=== PATIENT | female | born 1940 | race Caucasian/White ===

== ENCOUNTER → 2016-09-01 | Outpatient (CLI) | payer MEDICARE ==
[~2016-09-01] MED LIST: ALBUTEROL0.09 MG/A2 INH; AUGMENTIN 875 M1 TA1 PO; BENADRYL50 MG PO; CIPRO500 MG PO; CIPROFLOXACIN500 MG PO; DUONEB 3 MG/3 ML3 M1 INH; HYDROCODONE BIT1 T11 PO; LOVASTATIN10 MG PO; MIRAPEX PO; NEBULIZER; NORCO 325 MG-51 TAB PO; OMEPRAZOLE20 MG PO; OMEPRAZOLE40 MG PO; OXYBUTYNIN5 MG PO; PREDNICOT20 MG PO; SIMVASTATIN10 MG PO; SPIRIVA -- 3018 MCG PO; TRAMADOL HCL50 MG PO; ULTRAM50 MG PO; VIBRAMYCIN100 MG PO; VICODIN 5/500 505 MG PO
== END | disposition home or self-care (01) ==
LOC: MAMMO 12:54
DX: Z12.31 Encounter for screening mammogram for malignant neoplasm of breast (principal)

== ENCOUNTER → 2016-10-19 | Outpatient (CLI) | payer MEDICARE | END | disposition home or self-care (01) | LOC: RAD 16:16 | DX: J44.9 Chronic obstructive pulmonary disease, unspecified (principal); R07.89 Other chest pain ==

== ENCOUNTER 2017-02-26 18:32 | Inpatient (IN) | payer MEDICARE ==
[~2017-02-26] VITALS: Ht 144.7 cm; Wt 71.8 kg
--- NOTE | ~2017-02-26 | PR ---
[place], [place] PROGRESS NOTE NAME: CORTES PONCE UNIT #: [id number] ROOM: 509 DOCTOR: DEVAN CAO MD BIRTHDATE: [birth year] DOS: 03/01/2017 SUBJECTIVE: The patient continues to have grunting respiration, seems to be choking on cereal that she is eating. OBJECTIVE: VITAL SIGNS: Blood pressure 115/70, pulse of 71, respirations 20, temperature 97.9. LUNGS: Diminished breath sounds, a few scattered rales heard. HEART: Regular. ABDOMEN: Obese, soft. EXTREMITIES: Without any edema. ASSESSMENT AND PLAN: 1. Acute diastolic congestive heart failure, improving, most likely from underlying aortic stenosis. 2. Possibility of aspiration. Speech Therapy consultation has been ordered. 3. Adult failure to thrive. PT/OT and social service consult has been obtained for possible skilled placement. DEVAN CAO MD CM:PNTRANS [phone] DEVAN CAO MD 03/02/1799 interface
--- NOTE | ~2017-02-26 | PR ---
[place], [place] PROGRESS NOTE NAME: CORTES PONCE UNIT #: [id number] ROOM: 509 DOCTOR: DEVAN CAO MD BIRTHDATE: [birth year] DOS: SUBJECTIVE: The patient is not having any complaints today. She continues to have grunting respirations and a cough after she ate. OBJECTIVE: VITAL SIGNS: Blood pressure 126/45, pulse of 62, respirations 18, temperature 98.3. LUNGS: Diminished breath sounds, clear. HEART: Regular. ABDOMEN: Obese, soft, nontender. EXTREMITIES: Without any edema. LABORATORY DATA: No echo report available yet. ASSESSMENT AND PLAN: 1. Possible aspiration, especially with her coughing spells after she eats, a modified barium swallow with speech will be ordered. 2. Aortic stenosis, moderate waiting for the echocardiogram to decide on further treatment plan. Fall could be related to dizziness from aortic stenosis. 3. Adult failure to thrive with repeated falls. The patient's family does not want her to go to a rehab facility. Plan is to discharge home with visiting nurses. DEVAN CAO MD CM:PNTRANS [phone] DEVAN CAO MD 03/09/17 1134 interface
--- NOTE | ~2017-02-26 | WRIGHTHP ---
[place], [place] PATIENT HISTORY AND PHYSICAL EXAM NAME: CORTES PONCE UNIT #: [id number] ROOM: 509 DOCTOR: DEVAN CAO MD BIRTHDATE: [birth year] DOS: 02/26/2017 HISTORY OF PRESENT ILLNESS: The patient is 76 years old. The patient has been admitted under services in the past. The patient was brought into the Emergency Room by family members after a fall in a bath tub. She hit her right forehead. The patient this morning is not able to tell me exactly what happened to her. She is not able to tell me her doctor's name either. She denies having any chest pains or palpitations, but she states that she has been short of breath for the last 2 weeks. She does not have any cough or sputum production, but audible wheezing can be heard. PAST MEDICAL HISTORY: Significant for: 1. COPD. 2. Moderate aortic stenosis. Last echo that we have in the chart is from 2014. 3. History of diastolic CHF. 4. Adult failure to thrive. MEDICATIONS: That the patient is on are; ProAir HFA 2 puffs q.i.d., DuoNeb twice a day, omeprazole 40 daily, oxybutynin 5 daily, simvastatin 10 daily, Spiriva 1 puff at bedtime. SOCIAL HISTORY: Nonsmoker. PHYSICAL EXAMINATION: GENERAL: She is awake and alert, but orientation is questionable. VITAL SIGNS: Pressure is 118/39, pulse of 68, respirations 18, temperature 97.7. LUNGS: Diminished breath sounds, scattered wheezes and rhonchi. HEART: Regular. ABDOMEN: Obese, soft. EXTREMITIES: Without any edema. ASSESSMENT AND PLAN: 1. The patient has underlying chronic obstructive pulmonary disease with mild exacerbation, breathing treatments will be started. 2. Recent fall at home with some bruising of the right forehead. CT scan of the head was negative other than chronic small vessel disease. The patient will have PT, OT evaluation and possible social service consult for placement. 3. Moderate aortic stenosis in the last echocardiogram in 2014. The possibilities that the stenosis may be much worse and that she has dizziness and her fall could be from the underlying stenosis, so echocardiogram has been ordered, chest x-ray will be ordered and also one dose of Lasix to be given to see whether she will diurese and help with shortness of breath. [place], [place] PATIENT HISTORY AND PHYSICAL EXAM NAME: CORTES PONCE UNIT #: [id number] ROOM: [facility] DOCTOR: DEVAN CAO MD BIRTHDATE: [birth year] DEVAN CAO MD CM:HISPHYS:PATIENT HISTORY AND PHYSICAL EXAMINATION [id number] DEVAN CAO MD 03/09/17 1132 interface
--- NOTE | ~2017-02-26 | PR ---
[place], [place] PROGRESS NOTE NAME: CORTES PONCE UNIT #: [id number] ROOM: 509 DOCTOR: DEVAN CAO MD BIRTHDATE: [birth year] DOS: 02/28/2017 SUBJECTIVE: The patient states that she feels better. Her daughter who was in the room also states that she looks better. The patient has a grunting respiration. OBJECTIVE: VITAL SIGNS: Graphic trend shows blood pressure 143/60, pulse of 80, respirations 20, temperature 98.1. LUNGS: Diminished breath sounds. Scattered rales heard bilaterally. HEART: Regular. ABDOMEN: I could not hear murmur because of the grunting respirations. EXTREMITIES: Without knee edema. LABORATORY DATA: For the last 24 hours negative balance by 42 mL. ASSESSMENT AND PLAN: 1. Acute diastolic congestive heart failure, getting diuresed. 2. Aortic stenosis, [id number] possibility is reason for her congestive heart failure. Echocardiogram pending. Cardiology consultation obtained. 3. Frail with adult failure to thrive. PT/OT will be consulted. The patient as per the family members does not walk on her own. She is mostly bed bound or sits in a recliner. Social Service will also be consulted for discharge planning. DEVAN CAO MD CM:PNTRANS [phone] DEVAN CAO MD 03/16/17 0810 interface
--- NOTE | ~2017-02-26 | CON ---
[place], [place] REPORT OF CONSULTATION NAME: CORTES PONCE UNIT #: [id number] ROOM: 509 DOCTOR: SUAD KENNEDYAGNESMADI BIRTHDATE: [birth year] DOS: 02/28/2017 REQUESTING PHYSICIAN: Dr. Raygoza. REASON FOR CONSULTATION: Fall. ASSESSMENT: 1. Current presentation with status post fall. 2. No preceding cardiac symptoms or loss of consciousness. 3. Hypertension. 4. Hyperlipidemia. 5. Unknown level of lipid. 6. Enlarged cardiac silhouette on chest x-ray. 7. Abnormal baseline EKG. 8. Systolic ejection murmur on physical exam. 9. History of heavy previous tobacco abuse. PLAN: 1. Cycle cardiac enzymes. 2. Check thyroid function test. 3. Echocardiogram in a.m. 4. Lopressor 25 mg 1 tablet p.o. b.i.d. 5. We will follow only conservative management (at the request from the patient, her son and daughter). 6. No further cardiac testing at this time. HISTORY OF PRESENT ILLNESS: The patient is a pleasant 76-year-old female unknown to our practice, was referred by Dr. Raygoza further evaluation of a fall. Apparently, there was a question with evidence of systolic ejection murmur. Physical exam consistent with aortic stenosis, for that Cardiology consultation was called in. From the cardiology point of view, the patient denies any specific cardiac complaint. No chest pain, chest pressure, heaviness or tightness. No jaw pain, no left arm pain, no back pain. History was obtained from patient, her son and her daughter who were present at the time of this examination. Never had any symptomatic palpitation or any associated dizziness, lightheadedness or near syncope. No reported PND, orthopnea or pedal edema. The patient has lived at home with very limited functional capacity and known unsteady gait for the past 2 years. The patient uses a walker and occasionally a cane. No fever, no chills, no night sweats. The patient though has been reporting some cough. Stable appetite with no significant recent weight change. PAST MEDICAL HISTORY: As detailed in my assessment. SOCIAL HISTORY: The patient denies any current tobacco, alcohol or illicit drug abuse. Of note, the patient is a heavy previous smoker, according to her daughter. CURRENT MEDICATIONS: Zocor, Lasix, Tylenol, Ditropan and DuoNeb. [place], [place] REPORT OF CONSULTATION NAME: CORTES PONCE UNIT #: [id number] ROOM: [facility] DOCTOR: CRIS BORJAS MD BIRTHDATE: [birth year] ALLERGIES: The patient has no known drug allergies. REVIEW OF SYSTEMS: Was done with the help of the patient's son and daughter. There is no current headache, diplopia or blurry vision. There is pain at the right side of the face where the patient had hit her head. There is no fever, chills or night sweats. No abdominal pain, no bright red blood per rectum or tarry stools. The patient admits to joint pain and muscular pain. Occasional depression, but no anxiety. No polyuria, no polydipsia, no skin rash. Review of other systems has been negative. PHYSICAL EXAMINATION: GENERAL: The patient is alert, oriented x 3. She is in bed, moaning most of the time. No specific cardiac complaint. VITAL SIGNS: Blood pressure 143/60, heart rate 88, respiratory rate of 16. Extraocular muscles are intact, temperature 98.1. HEENT: Extraocular muscles intact. Pupils equal, round and reactive to light. Conjunctivae: Mild pallor. Throat: No petechiae. NECK: Good upstroke. A faint bruit could be heard over the right. No lymphadenopathy or thyromegaly. CARDIOVASCULAR: S1, S2 with a systolic ejection murmur that appears to be early to mid peaking, but preserved, A2. No rub, no sternal heave. Holosystolic murmur at the left lower sternal border. CHEST AND BACK: Not examined. LUNGS: Decreased air movement, but no alexa wheezing or rales. ABDOMEN: Obese, soft, nontender. Present bowel sounds. No masses, no bruits. EXTREMITIES: Mild edema with faint distal pulses. NEUROLOGIC: Grossly nonfocal. SKIN: No significant rash. LABORATORY DATA: White count is 10.4, hemoglobin 13.4, platelets 313,000 and there is no left shift. Potassium 4.3, BUN 23, creatinine 0.8, GFR more than 60% and glucose 120, normal liver function test. CRIS BORJAS MD CM:CONSTR:REPORT OF CONSULTATION 1135 03/26/17 1418 interface
--- NOTE | ~2017-02-26 | PR ---
[place], [place] PROGRESS NOTE NAME: CORTES PONEC UNIT #: [id number] ROOM: 509 DOCTOR: DEVAN CAO MD BIRTHDATE: [birth year] DOS: SUBJECTIVE: The patient is doing fine without any complaints. OBJECTIVE: VITAL SIGNS: Graphic trend shows pressure 122/51, pulse of 74, respirations 18, temperature 98.6. LUNGS: Diminished breath sounds. HEART: Regular. A few scattered wheezes still present. ABDOMEN: Obese, soft. EXTREMITIES: Without any edema. LABORATORY DATA: Chest x-ray was negative. Modified barium swallow showed no evidence of aspiration. Echocardiogram showed moderate aortic stenosis. ASSESSMENT AND PLAN: 1. Fall with failure to thrive. The patient's family wants her to go home and have PT, OT at home. They did not want to be placed in a rehab facility. 2. Small contusion of the right forehead. CT of the head was negative. 3. Moderate aortic stenosis could be responsive for her fall. 4. Benign hypertension, controlled with history of diastolic congestive heart failure. 5. Chronic obstructive pulmonary disease with mild exacerbation. Continue breathing treatments and steroids at home. DEVAN CAO MD CM:PNTRANS [phone] DEVAN CAO MD 03/03/179 interface
--- NOTE | ~2017-02-26 | PROC NOTE ---
[place], [place] PROCEDURE NOTE NAME: CORTES PONCE UNIT #: [id number] ROOM: 509 DOCTOR: CAROLANN MARTIN BIRTHDATE: [birth year] DOS: 03/02/2017 MODIFIED BARIUM SWALLOW LOCATION: [facility], room 509, bed 1. DOCTOR: Dr. Raygoza RADIOLOGIST: Dr. Salcido BACKGROUND INFORMATION: The patient is a 76-year-old female who was seen for modified barium swallow. This test was ordered to rule out aspiration. The patient was observed recently choking on cereal. The patient was admitted with a fall and closed head injury. Further medical history includes acute diastolic heart failure, failure to thrive, high cholesterol, Parkinson's disease, COPD, HTN and GERD. The patient currently receives a regular diet and thin liquids. For today's assessment, the patient was alert and able to follow commands; however, significant generalized weakness was displayed. The patient presented in a consistent open mouth position with tongue protruding. The patient was receiving oxygen via nasal cannula. Congested respirations were noted. Weak cough was displayed prior to oral presentations. Oral peripheral examination revealed presence of upper denture only. The patient reported that her denture is loose fitting. Labial skills were moderate to severely reduced in strength and range of motion. Buccal skills were mildly reduced in strength. Lingual skills were moderately reduced in strength and range of motion. The patient was able to volitionally swallow. Volitional cough was poor. METHODS AND MATERIALS USED FOR THE EXAM: The patient was positioned in the lateral plane and the exam was viewed under fluoroscopy. The patient was presented with a variety of consistencies to assess swallowing skills including applesauce mixed with barium presented in one to half and three quarters teaspoon amounts, barium-coated banana and cookie presented in bite size pieces and thin liquid barium taken by cup. The patient held the cup and swallowed in her regular sip size amount. ORAL PHASE: The patient achieved adequate labial seal around cup and spoon with no anterior loss. Bolus formation and transit were adequate. Mastication was functional due to her dentition. Tongue to palate contact was within normal limits. Tongue retraction was within normal limits. Velar functioning was within normal limits with no nasal regurgitation. PHARYNGEAL PHASE: The pharyngeal swallow occurred within a timely manner during the swallow. Hyolaryngeal elevation was adequate. Epiglottic function was adequate. No penetration or aspiration occurred with any consistency. There was no residue in the pharyngeal recesses. Incidentally, patient did begin coughing following oral presentations and upon further exam no penetration or aspiration had occurred. ESOPHAGEAL PHASE: This phase of the swallow was not formally assessed during this examination. [place], [place] PROCEDURE NOTE NAME: CORTES PONCE UNIT #: [id number] ROOM: [facility] DOCTOR: CAROLANN MARTIN BIRTHDATE: [birth year] IMPRESSIONS AND RECOMMENDATIONS: Based upon assessment results, this patient displayed safe tolerance for pureed, soft solid and thin liquid consistencies. Following the study, the patient did begin coughing, but upon further exam no penetration or aspiration had occurred. Recommend the patient remain on present diet with use of universal safe swallow precautions. Short term followup is recommended to ensure safety throughout the meal as her status places her at risk for aspiration. The patient and her nurse were educated on results and recommendations and they verbalized understanding. Thank you very much for this referral. Should you have any questions regarding this patient, please contact the speech pathologist at [phone]. CAROLANN MARTIN CM:PROCNOTE:PROCEDURE NOTE [phone] CAROLANN MARTIN
--- NOTE | ~2017-02-26 | DS ---
[place], [place] DISCHARGE SUMMARY NAME: CORTES PONCE UNIT #: [id number] ROOM: 509 DOCTOR: DEVAN CAO MD BIRTHDATE: [birth year] DOS: 03/03/2017 This is a 76-year-old patient known to us from previous admissions. DIAGNOSES: 1. Frailty with falls. 2. Scalp contusion. CT does not show any evidence of intracranial or subdural hematomas. 3. Small vessel disease of the brain. 4. Chronic obstructive pulmonary disease with mild exacerbation. 5. Diastolic congestive heart failure by history. 6. Moderate aortic stenosis. DISCHARGE MEDICATIONS: DuoNeb q.i.d., Ceftin 250 twice a day, prednisone tapering dose, Lasix 40 mg daily, oxybutynin 5 daily, omeprazole 40 daily, Spiriva 1 puff at bedtime, simvastatin 10 daily, ProAir HFA p.r.n. HOSPITAL COURSE: The patient is 76 years old. The patient comes in after a fall at home: Please refer to H and P for details. The patient had a scalp contusion. CT of the head and CT of the spine was negative. Chest x-ray showed no pathology. The patient appeared to have exacerbation of COPD after admission, was started on breathing treatments. There was also the suspicion for aspiration, so qualified barium swallow with Speech was done, which showed no evidence of aspiration. Cardiology consultation was obtained. The patient's echocardiogram showed moderate aortic stenosis, so no new medications were ordered. PT/OT was consulted. The patient's family feel that they could take her home with PT, OT, so arrangements will be made for visiting nurses and home health PT. Follow up with her PCP. DEVAN CAO MD CM:DISCHARG [phone] DEVAN CAO MD 03/03/17 1730 interface
[2017-02-26 19:05] VITALS: BP 139/76
[2017-02-26 19:29] LABS: BASO # 0.1 10*3/uL (0.0-0.1); BASO % 0.9 % (0.0-1.0); EOS # 0.2 10*3/uL (0.0-0.4); EOS % 1.8 % (1.0-4.0); HEMOGLOBIN 13.4 g/dl (12.0-16.0); LYMPH # 2.5 10*3/uL (1.3-4.4); LYMPH % 24.5 % (27.0-41.0); MEAN CORPUSCULAR HGB 28.4 pg (27.0-31.0); MEAN CORPUSCULAR HGB CONC 31.9 g/dl (33.0-37.0); MEAN PLATELET VOLUME 9.2 fl (9.6-12.3); MONO % 9.9 % (3.0-9.0); NEUT # 6.5 10*3/uL (2.3-7.9); NEUT % 62.5 % (47.0-73.0); PLATELET COUNT AUTOMATED 313 10*3/uL (130-400); RED BLOOD COUNT 4.72 10*6/uL (4.10-5.10); RED CELL DISTRI WIDTH 13.7 % (0-14.5); WHITE BLOOD COUNT 10.4 10*3/uL (4.8-10.8)
[2017-02-26 19:38] VITALS: BP 132/64
[2017-02-26 19:43] LABS: ALBUMIN 3.3 gm/dl (3.1-4.5); ALKALINE PHOSPHATASE 90 U/L (45-117); BUN 23 mg/dl (7-24); CHLORIDE 106 mmol/L (98-107); CREATININE 0.81 mg/dL (0.55-1.02); POTASSIUM 4.3 mmol/L (3.5-5.1); SGOT/AST 10 IU/L (3-35); SGPT/ALT 17 U/L (12-78); SODIUM 139 mmol/L (136-145); TOTAL PROTEIN 7.5 gm/dL (6.4-8.2)
--- NOTE | 2017-02-26 20:06 | NUR ---
PT HAD EPISODE OF EMESIS PER BARREL CLEANER WHEN ENTERING ROOM FOR ASSESSMENT. PT SPEECH IS SLURRED AND PT HAS FLAT AFFECT BUT DAUGHTER STATES THIS IS PT'S NORMAL STATE
[2017-02-26 21:18] VITALS: BP 132/50
--- NOTE | 2017-02-26 23:05 | NUR ---
REPORT GIVEN TO JEN MARX
[2017-02-26 23:30] VITALS: BP 118/39
--- NOTE | 2017-02-26 23:30 | NUR ---
A 76, admitted to , under the services of DEVAN Gomez MD with a diagnosis of FALL WITH CLOSED HEAD INJURY AND GENERALIZED WEAKNESS. Chief complaint is FALL GENERALIZED WEAKNESS. Patient arrived via bed from ER. Monitor applied. Initial assessment completed. Vital signs taken and recorded. DEVAN GOMEZ MD notified of admission to the unit. Orders received. See assessment for past medical history, medications and allergies. Patient and/or family oriented to unit. [facility] visitation policy reviewed. Clothing/patient valuable form completed. JEN LASSITER
[2017-02-26] MEDS ORDERED: PROAIR HFA8.5 GM INH (23:44)
[2017-02-27] VITALS: BP 149/64
[2017-02-27 08:00] VITALS: BP 142/60
[2017-02-27 12:00] VITALS: BP 128/68
[2017-02-27 16:00] VITALS: BP 152/55
--- NOTE | 2017-02-27 17:57 | NUR ---
PATIENT MEDICATED WITH PO TYLENOL PER ORDER FOR C/O HEADACHE AT THIS TIME. WILLL MONITOR.
[2017-02-27 20:00] VITALS: BP 136/50
[2017-02-28] VITALS: BP 143/60
--- NOTE | 2017-02-28 03:22 | NUR ---
PATIENT RESTING IN BED WITH EYES CLOSED. NO SIGNS OR SYMPTOMS OF DISTRESS NOTED. AROUSES TO VERBAL STIMULI. WILL CONTINUE TO MONITOR. CALL LIGHT IN REACH.
--- NOTE | 2017-02-28 08:46 | NUR ---
PT RECEIVED 650MG TYLENOL FOR SHARP RIB PAIN UPON RESPIRATION RATED AT 10/10.
--- NOTE | 2017-02-28 09:30 | NUR ---
PT STATES PAIN HAS REDUCED IN SHARPNESS AND STATES PAIN LEVEL AT A 6/10 DURING RESPIRATION.
[2017-02-28 11:55] LABS: TROPONIN I < 0.015 ng/ml (<0.045)
[2017-02-28 12:00] VITALS: BP 132/64
[2017-02-28 16:00] VITALS: BP 142/55
--- NOTE | 2017-02-28 19:30 | NUR ---
ASSUMED CARE OF PT AT THIS TIME, RESPS EASY AND NONLABORED WTIH NO S/S OF DISTRESS CALL LIGHT WITH IN REACH
[2017-02-28 20:00] VITALS: BP 140/58
[2017-03-01] VITALS: BP 149/64
--- NOTE | 2017-03-01 03:13 | NUR ---
RESTING IN BED WITH EYES CLOSED RESPS EASY AND NONLABORED WITH NO S/S OF DISTRESS CALL LIGHT WITH IN REACH
[2017-03-01 08:00] VITALS: BP 132/54
--- NOTE | 2017-03-01 08:30 | NUR ---
ALARM MECHANISM ADJUSTER VS. AID AT BEDSIDE. PT NOT ABLE TO ANSWER QUESTIONS. DC IRONER OR PRESSER WILL CHECK WITH FAMILY FOR POSS SNF PLACEMENT.
--- NOTE | 2017-03-01 11:28 | NUR ---
Spoke with giovani parish, who is also the patients director day care center. we discussed order for snf placement. Daughter says no, she doesn't want her to go to skilled, she takes patient to out patient therapy at the [facility] and would like that to continue. Will need script for out patient therapy prior to discharge.
--- NOTE | 2017-03-01 11:33 | NUR ---
Daughter called back and stated patient also goes to [facility] Wednesday through Wednesday until 2PM and does fine. Again, refusing snf.
[2017-03-01 12:00] VITALS: BP 134/62
--- NOTE | 2017-03-01 13:46 | NUR ---
PHYSICAL THERAPY PAtient having testing done at [facility] at this time. Thank you for this referral. Kymberly Boyd,PT
--- NOTE | 2017-03-01 14:46 | NUR ---
PHYSICAL THERAPY PAtient evaluated on 5, full evaluation to follow. Continue with PT as per plan of care with fall, mod (A) x 2 and alarm precautions. Recommend SNF: [facility], patient and family refuses. Home with 07/12 family assist and complete home health services. PAtient is moderate complexity via chart review, tests and evaluation: 19020. Thank you for this referral. Kymberly Boyd,PT
--- NOTE | 2017-03-01 15:29 | NUR ---
Occupational Therapy evaluation completed this date on 5 with full eval to follow. Precautions include fall risk, bed alarm, new O2, +2 assist for xfers, high complexity level 56580. Recommend OT per POC and SNF to enable safe return home w family as able. Thank you for this referral. Chely Mc OTR/l
[2017-03-01 16:00] VITALS: BP 115/70
--- NOTE | 2017-03-01 19:30 | NUR ---
ASSUMED CARE OF PT AT THIS TIME, RESPS EASY AND NONLABORED WITH NO S/S OF DISTRESS CALL LIGHT WITH IN REACH
[2017-03-01 20:00] VITALS: BP 130/46
[2017-03-02] VITALS: BP 114/45
--- NOTE | 2017-03-02 07:49 | NUR ---
GIVEN 650MG OF TYLENOL FOR COMPLAINTS OF 10/10 CHEST PAIN. VITAL SIGNS ARE FOLLOWS 140/55, 71 BPM, 98.2 DEGREES F, 18 RESPIRATIONS PER MINUTE, 94% ON 3L NC.
[2017-03-02 08:00] VITALS: BP 141/52; BP 141/55
--- NOTE | 2017-03-02 08:33 | NUR ---
STATES MEDICATION AND BREATHING TREATMENT HAS HELPED WITH CP
--- NOTE | 2017-03-02 09:03 | NUR ---
PHARMACY CARE COORDINATOR VS. DAUGHTER PRESENT AND PROVIDED SCRIPT FOR OUTPT P.T. REQUESTED.
--- NOTE | 2017-03-02 09:06 | NUR ---
PHYSICAL THERAPY Jackeline seen this AM 1:1 for her therapy and was having her breathing treatment. ACOSTA HERNANDEZ INSTRUCTOR BUS TROLLEY AND TAXI.
--- NOTE | 2017-03-02 10:13 | NUR ---
SPEECH PATHOLOGY MBS completed as per orders. Patient was alert and cooperative but displayed significant generalized weakness. Patient was challenged with puree, solids and thin liquid, taken independently by cup. Patient displayed safe tolerance for all consistencies given, with no oral difficulty, no penetration/aspiration and no pooling in the pharynx. Following the study she began coughing but upon further exam, no penetration or aspiration had occurred. Recommend patient remain on present diet with use of universal safe swallow precautions. Short term follow up is recommended to ensure safety throughout the meal, using strategies and education, as patient's condition places her at risk for aspiration. Patient and her nurse were educated on results and atilio. and verbalized understanding. Dictated report to follow. Thank you for this referral. CAROLANN MARTIN MSCCC-GUILLOTINE OPERATOR
--- NOTE | 2017-03-02 10:36 | NUR ---
PHYSICAL THERAPY Back to see Jackeline and she was off the floor down to X-Ray at this time. ACOSTA HERNANDEZ AERONAUTICAL ENGINEERING TEACHER.
[2017-03-02 12:00] VITALS: BP 126/45
--- NOTE | 2017-03-02 13:12 | NUR ---
PHYSICAL THERAPY Back this PM to see Jackeline and she just got up in her bedside chair by OT and having her lunch at this time daughter present. ACOSTA HERNANDEZ VEGETABLE CUTTER.
--- NOTE | 2017-03-02 13:42 | NUR ---
PATIENT IN BED UPON ARRIVAL THIS FAMILY MEMBER PRESENT. PATIENT COMPLETED 1:1 OT 15 MINUTES THIS DATE 1:1 . IDENTIFIED PATIENT BY NAME AND DATE OF . PATIENT COMPLETED SUPINE TO SIT MOD A WITH INCREASE TIME MOD VERBAL CUES TECHNIQUE AND FORM. PATIENT COMPLETED SIT BALANCE MIN A EOB. COMPLETED SPT USE FWW ESMER FROM BED TO RECLINER. PATIENT COMPLETED SIT TO STAND FROM RECLINER MIN A X 1 AND MOD A X 1 WITH VERBAL CUES PROPER FOOT AND HAND PLACEMENT. PATIENT COMPLETED STANDING TOLERANCE ACRTIVITY ESMER USE FWW SUPPORT APPROX 30 SECONDS X 2 WITH VERBAL CUES INCREASE STANCE. PATIENT DEMONSTRATES POOR SAFETY AWARENESS. LUNCH TRAY ARRIVED WITH PATIENT SEATED IN RECLINER. ROSELINE LASHAWN WELSH/L ROSELINE LASHAWN WELSH/L
[2017-03-02 16:00] VITALS: BP 131/71
--- NOTE | 2017-03-02 16:19 | NUR ---
DR CAO CONTACTED FOR PRN HEARTBURN MEDICATION. ORDERED ZANTAC 150 BID.
--- NOTE | 2017-03-02 16:47 | NUR ---
BLOOD STARTED AT 125 ML/HR AT 1643 INITIAL VITALS ARE WNL.
[2017-03-02 20:00] VITALS: BP 132/52
[2017-03-03] VITALS: BP 117/58
--- NOTE | 2017-03-03 01:19 | NUR ---
RESTING IN BED WITH EYES CLOSED RESPS EASY AND NONLABORED WITH NO S/S OF DISTRESS CALL LIGHT WITH IN REACH
--- NOTE | 2017-03-03 03:56 | NUR ---
PT RESTING IN BED WITH EYES CLOSED RESPS EASY AND NONLABORED WITH NO S/S OF DISTRESS CALL LIGHT WITH REACH
[2017-03-03 08:00] VITALS: BP 122/51
[2017-03-03] MEDS ORDERED: DUONEB 3 MG/3 ML3 M1 INH (08:42)
[2017-03-03] MEDS ORDERED: PREDNISONE5 MG PO (08:42)
[2017-03-03] MEDS ORDERED: LASIX40 MG PO (08:42)
[2017-03-03] MEDS ORDERED: CEFUROXIME AXE250 MG PO (08:42)
--- NOTE | 2017-03-03 09:54 | NUR ---
Discharge instructions reviewed with patient/family. Patient receptive and verbalizes understanding. Follow-up care arranged. Written instructions given to patient/family. MAYANK CHANDLER
--- NOTE | 2017-03-03 10:09 | NUR ---
PHYSICAL THERAPY Jackeline seen this AM 1:1 for her therapy. Transfer supine/sit, MOD A X 1, sitting balance once up CG X 1, to just supervision. SIt/stand and standing balance MOD A X 1, then gait 4-5 steps to bedside chair with MAX A X 1, with verbal cueing for balance and to trust me to keep her from falling. Pt up in her bedside chair, call light followed by act Ex to bilateral LE with verbal cueing for each Ex of marching, LARuel's ankle pumps working in 20 reps each. ACOSTA HERNANDEZ CUSTOMER SERVICER.
--- NOTE | 2017-03-03 12:23 | NUR ---
OCCUPATIONAL THERAPY CO-SIGN I approve of the Occupational Therapy notes written above. DE REYNOLDS OTR/Mayuri
--- NOTE | 2017-03-03 12:28 | NUR ---
PHYSICAL THERAPY CO-SIGN I approve of the Phyical Therapy notes written above. DAISY PAZ PT
== END 2017-03-03 09:55 | disposition home health service (06) | DRG 190 ==
LOC: ED 18:32 → 5E 22:29 → EDHOLD 22:29 → 5E 22:51
PROVIDERS: Internal Medicine Cardiovascular Disease; Nurse Practitioner Family; ADMIT Internal Medicine
PROC: BD1BYZZ Fluoroscopy of Mouth/Oropharynx using Other Contrast (ICD-10-PCS; principal; 2017-03-02)
PROC: BD11YZZ Fluoroscopy of Esophagus using Other Contrast (ICD-10-PCS; principal; 2017-03-02)
DX: J44.0 Chronic obstructive pulmonary disease with (acute) lower respiratory infection (principal); I50.31 Acute diastolic (congestive) heart failure; G20 Parkinson's disease; I67.89 Other cerebrovascular disease; S22.31XA Fracture of one rib, right side, initial encounter for closed fracture; S00.03XA Contusion of scalp, initial encounter; E78.5 Hyperlipidemia, unspecified; R62.7 Adult failure to thrive; R54 Age-related physical debility; J44.1 Chronic obstructive pulmonary disease with (acute) exacerbation; S00.83XA Contusion of other part of head, initial encounter; I11.0 Hypertensive heart disease with heart failure; J20.9 Acute bronchitis, unspecified; S20.219A Contusion of unspecified front wall of thorax, initial encounter; I35.2 Nonrheumatic aortic (valve) stenosis with insufficiency; W18.39XA Other fall on same level, initial encounter; Y93.89 Activity, other specified; Y92.091 Bathroom in other non-institutional residence as the place of occurrence of the external cause; Y99.8 Other external cause status; Z74.01 Bed confinement status

== ENCOUNTER 2017-05-22 15:52 | Inpatient (IN) | payer MEDICARE ==
[~2017-05-22] VITALS: Ht 170.2 cm; Wt 68.6 kg
--- NOTE | ~2017-05-22 | PR ---
[place], [place] PROGRESS NOTE NAME: CORTES PONCE UNIT #: [id number] ROOM: 524 DOCTOR: GRECIA MACARIO MD,MARIO BIRTHDATE: [birth year] DOS: 06/03/2017 The patient was independently seen and examined, [id number] encounter, history was confirmed. Physical examination was performed. The note done by the medical insurance claims processor was approved. Assessment and management change personally recommended. The patient has been noted comfortable at this time, resting awake and alert, does speak few words. The BiPAP has been used intermittently for this patient. The oxygen supplementation used at that time. This morning, she was noted use of oxygen supplementation with the nasal cannula. OBJECTIVE: VITAL SIGNS: For the patient which were recorded shows a normal temperature, respiratory rate 20, heart rate 94, blood pressure 136/50, pulse ox saturation on 4 liters 93% saturation. HEENT: No acute change. NECK: Supple. CARDIOVASCULAR: S1, S2 is audible. LUNGS: The patient was noted without any wheezing or crackles. ABDOMEN: Soft. EXTREMITIES: Showed reduction of the edema. ABDOMEN: Soft, nontender. IMPRESSION: History of parkinsonism with acute aspiration pneumonia and acute respiratory failure, also exacerbation of bronchial asthma/COPD all improving. The patient is currently awaiting for the transfer to [facility] facility. The steroids of the patient will be completely discontinued and that had been gradually tapered off for the patient. No wheezing noted. Other treatment will be continued as previously ordered. MARIO PAIGE MD CM:PNTRANS [phone] MARIO MACARIO MD 06/03/171851 interface
--- NOTE | ~2017-05-22 | PR ---
[place], [place] PROGRESS NOTE NAME: CORTES PONCE UNIT #: [id number] ROOM: [facility] DOCTOR: GRECIA MACARIO MD,MARIO BIRTHDATE: [birth year] DOS: 05/24/2017 PULMONARY CRITICAL CARE EVALUATION AND MANAGEMENT SUBJECTIVE: She has been successfully liberated, started on mechanical ventilation yesterday. The oxygen supplementation has been gradually reduced. The endotracheal aspirate was sent for culture. All the cultures have been previously taken. She was also started on intravenous Diprivan for sedation and use of Versed combination. She has not been reported with any hemodynamic instability at the present time. The tachycardia, which has been noted previously seemed to be resolved. Blood pressure was well maintained. OBJECTIVE: VITAL SIGNS: Shows normal temperature to 99.2 degree Fahrenheit, respiratory rate 18-23, heart rate of 86-103, blood pressure 143/67 to 110/58. Pulse oxygen saturation of the patient recorded as 98% on 40% oxygen supplementation. HEENT: The patient currently intubated. Orogastric tube has been inserted. NECK: Supple. Head was atraumatic. Eyes nonicterus. CARDIOVASCULAR: S1, S2 is audible. LUNGS: The patient noted moderate decreased breath sounds, basilar crackles. There was no wheezing heard. ABDOMEN: Moderate obesity. EXTREMITIES: Without any edema. SKIN: No lesions or rashes. MUSCULOSKELETAL: No deformities. GENITOURINARY: The patient is currently sedated. LABORATORY DATA: Arterial blood gas that was done post-intubation, mechanical ventilation started for the patient 50% oxygen, pH of 7.28, pCO2 of 51, pO2 of 112. Arterial blood gas that was done this morning, tidal volume of 550 mL, rate of 12, PEEP of 8. On 40% oxygen, pH of 7.36, pCO2 of 43.9, pO2 of 88.8. Endotracheal aspirate culture for patient showed no bacterial growth. The Gram stain reviewed and shows many white blood cells without any organisms. The CMP for the patient that was done this morning, glucose 210, BUN and creatinine was normal. Total protein of 5.6, albumin of 2.3. Vancomycin trough level noted as 8.2. Chest x-ray yesterday and this morning was reviewed for the patient post-intubation, endotracheal tube was noted in the appropriate position. Improvement in the aeration of the lower portion of the lung was noted. IMPRESSION: 1. The patient with dysphagia with history of parkinsonism with acute aspiration pneumonia was noted at the present time. 2. Acute respiratory failure secondary to that and hypercarbia as well. 3. Hyperglycemia related to corticosteroids. 4. Acute exacerbation of chronic obstructive pulmonary disease was noted as well. PLAN OF MANAGEMENT: At this time, the patient is to continue all of the three antibiotics for severe acute pneumonia during the intensive care management. After the culture results will be available, certainly the antibiotic spectrum [place], [place] PROGRESS NOTE NAME: CORTES PONCE UNIT #: [id number] ROOM: [facility] DOCTOR: GRECIA MACARIO MD,MARIO BIRTHDATE: [birth year] will be decreased. I will consider doing a bronchoscopy tomorrow morning to help assess the endobronchial tree because of current recent aspiration. In the meantime, continue ventilator bundle management. Additional treatment changes ____ based on the progression of the illness. Supportive care, other plan of management as well. Additional treatment changes to be made based on progression of illness. DVT prophylaxis already continued with the Lovenox. Continue medical management of hyperglycemia as well for the patient. The dose of Solu-Medrol to be continued at the same dose and from tomorrow, the dose will be decreased. Other supportive therapy, plan of management and care plan. Continue bronchodilators. Total time for the pulmonary critical care evaluation and management was 35 minutes. MARIO PAIGE MD CM:PNTRANS [phone] MARIO MACARIO MD 05/24/171956 interface
--- NOTE | ~2017-05-22 | EKG ---
[place], [place] ELECTROCARDIOGRAM REPORT NAME: CORTES PONCE UNIT #: [id number] ROOM: [facility] DOCTOR: GRECIA MACARIO MD,MARIO BIRTHDATE: [birth year] DOS: 05/24/2017 Electrocardiogram done on 05/22/2017 at 4:16 p.m. Sinus tachycardia noted, heart rate ____ beats per minute. Nonspecific ST-T changes of the patient was noted. IMPRESSION: Abnormal R-wave progression noted across the chest leads. MARIO PAIGE MD CM:EKGRPT:ELECTROCARDIOGRAM REPORT [id number] MARIO MACARIO MD
--- NOTE | ~2017-05-22 | PR ---
[place], [place] PROGRESS NOTE NAME: CORTES PONCE UNIT #: [id number] ROOM: [facility] DOCTOR: GRECIA MACARIO MD,MARIO BIRTHDATE: [birth year] DOS: 05/30/2017 SUBJECTIVE: She has been noted comfortable at this time without any acute distress. She has been using the BiPAP this morning when she was examined. She had now been reported symptoms of hemodynamic instability. She was planned for PEG tube insertion tomorrow. OBJECTIVE: VITAL SIGNS: Normal temperature, respiratory rate recorded at 22-16, heart rate of 72-83, blood pressure 117/47-127/58. Pulse oxygen saturation on 3 liters cannula 92% with BiPAP 35% oxygen supplementation was 95% saturation. HEENT: Showed no acute change. NECK: Supple. CARDIOVASCULAR: S1, S2 is audible. LUNGS: The patient was noted without any wheezing or crackles at the present time. ABDOMEN: Soft, nontender. EXTREMITIES: The patient mild edema of the upper extremities. IMPRESSION: 1. The patient has been noted currently stable at the present time with acute respiratory failure. 2. The patient with acute pneumonia, which has been improving progressively. 3. Severe debility. 4. Parkinsonism. 5. Aspiration with dysphagia secondary to Parkinsonism. PLAN OF MANAGEMENT: Continue current therapy, plan of management is in progress. Continue bronchodilators, oxygen supplementation. Proceed with the PEG tube insertion tomorrow. Other supportive therapy, plan of management and care. MARIO PAIGE MD CM:PNTRANS [phone] MARIO MACARIO MD 05/30/17 1705 interface
--- NOTE | ~2017-05-22 | PR ---
[place], [place] PROGRESS NOTE NAME: CORTES PONCE UNIT #: [id number] ROOM: [facility] DOCTOR: GRECIA MACARIO MD,MARIO BIRTHDATE: [birth year] DOS: 05/25/2017 SUBJECTIVE: The patient remains in the Intensive Care Unit at the present time. Remains on the mechanical ventilator. With the reduction sedation, the patient does open her eyes, but does not follow vocal commands. She has been noted with history of chronic Parkinsonism as well. She has not been noted any acute new hemodynamic instability at the present time. She has not been noted any tachycardia, low grade fever noted at 99.7 degree Fahrenheit high temperature. She has not been noted any nutritional issues, was started nutritional support for the patient yesterday as well. OBJECTIVE: VITAL SIGNS: The patient showed the temperature 99.7 degree Fahrenheit to 99.2 degree Fahrenheit, respiratory rate 17-18, heart rate of 70-84, blood pressure 137/56 to 156/59. Intake for the patient recorded as ____. Pulse oxygen saturation 40% on assist control mode, 97% saturation recorded. HEENT: Examination shows patient remained orally intubated, orogastric tube is in place. NECK: Supple. Head was atraumatic. CARDIOVASCULAR: S1, S2 is audible. LUNGS: Noted with moderate decreased breath sounds bilaterally. ABDOMEN: Soft, nontender, bowel sounds present. EXTREMITIES: The patient was noted without any edema. CENTRAL NERVOUS SYSTEM: No new changes compared to previous exam. SKIN: Visible skin with no lesions or rashes. MUSCULOSKELETAL: No deformities. LABORATORY DATA: The patient's CMP this morning; sodium 145, potassium 3.7, chloride 112. Remaining electrolytes normal. Total protein 5.8, albumin 2.4. CBC of the patient this morning; hemoglobin 10.4, hematocrit 32.7, WBC count normal, platelet count 259,000 with 84% segmented neutrophils. Previous culture of endotracheal aspirate noted light growth of yeast. Blood culture on 05/22/2017 noted with no bacterial growth. Chest x-ray of the patient that was done this morning was reviewed, showed endotracheal tube noted about 5 cm above the iraida level. No acute pulmonary visible infiltration was noted. Arterial blood gas that was done today for the patient; pH of 7.42, pCO2 of 40, pO2 98 with 40% oxygen assist control mode, tidal volume 550, PEEP of 8.0. IMPRESSION: 1. The patient with acute aspiration pneumonia. The patient currently assessed for the fibrobronchoscopy as well. She has been treated for coverage of gram-positive, gram-negative organisms. 2. History of Parkinsonism. 3. Mild anemia without any active bleeding. 4. Suspected protein calorie malnutrition as well. 5. She was also reported with some evidence of hemoptysis yesterday by the respiratory therapy staff, but there has not been active hemoptysis noted at the present time, which also mandate the bronchoscopy. PLAN OF TREATMENT: Continuation of the oxygen supplementation, bronchodilator [place], [place] PROGRESS NOTE NAME: CORTES PONCE UNIT #: [id number] ROOM: [facility] DOCTOR: GRECIA MACARIO MD,MARIO BIRTHDATE: [birth year] current ventilator management. Nutritional support to be continued, which was temporarily placed on hold. Fibrobronchoscopy was done today. Monitoring the anemia closely. Closely assess the patient for fibrobronchoscopy. Order any additional testing based on the bronchoscopy and make any changes accordingly. Usual care, other supportive plan of management and care. Usual medical management, other therapies as well. DVT prophylaxis. GI prophylaxis. No change in mechanical ventilation at this time will be necessary. Assessing her for liberation of mechanical ventilation would be considered after the bronchoscopy. Total time for pulmonary critical evaluation and management was 40 minutes. MARIO PAIGE MD CM:PNTRANS [phone] MARIO MACARIO MD 05/26/17 0241 interface
--- NOTE | ~2017-05-22 | PR ---
[place], [place] PROGRESS NOTE NAME: CORTES PONCE UNIT #: [id number] ROOM: [facility] DOCTOR: GRECIA MACARIO MD,MARIO BIRTHDATE: [birth year] DOS: 05/29/2017 SUBJECTIVE: She has been noted more awake and alert this morning. She has been using the BiPAP intermittent during the day and continue at nighttime. She has been responding to vocal commands. The orogastric tube is in place. She was planned for PEG tube insertion to be done on Wednesday. OBJECTIVE: VITAL SIGNS: Normal temperature, respiratory rate 18, heart rate 78, blood pressure 126/62. Pulse oxygen saturation recorded as 97% on 35% oxygen supplementation. HEENT: No acute change. NECK: Supple. CARDIOVASCULAR: S1, S2 audible. LUNGS: The patient was noted without any wheeze or crackles. ABDOMEN: Soft, nontender. EXTREMITIES: With mild edema in upper extremities. Lower extremities, no edema. LABORATORY DATA: CBC: WBC count 13.6, mild anemia, normal platelet count. BMP this morning, BUN 26, creatinine was normal. IMPRESSION: 1. The patient with history of parkinsonism with acute severe hypoxic respiratory failure with acute pneumonia that has been improving progressively. 2. Severe debility. 3. Oropharyngeal dysphagia with aspiration pneumonia. PLAN OF MANAGEMENT: No change in plan of therapy at this time was needed except changing the BiPAP at nighttime and p.r.n. during the day. Proceed with the current aspirate precaution support for the orogastric tube. Physical therapy, occupational therapy at the bedside. MRAIO PAIGE MD CM:PNTRANS [phone] MARIO MACARIO MD 05/30/17 0117 interface
--- NOTE | ~2017-05-22 | PR ---
[place], [place] PROGRESS NOTE NAME: CORTES PONCE UNIT #: [id number] ROOM: [facility] DOCTOR: GRECIA MACARIO MD,MARIO BIRTHDATE: [birth year] DOS: 05/28/2017 SUBJECTIVE: The patient was independently seen and examined with [id number] encounter, history was confirmed. Physical exam was performed. All the labs were reviewed. The assessment personally completed for today's visit and the management changes was also ordered. The patient remains liberated from mechanical ventilation. The consultation has been obtained for the [facility] by the family members refused the patient to be transferred to [facility] because of the distance travel by the family members from [place]. The patient has not been noted any new hemodynamic instability. Orogastric tube remains in place. The patient was continued getting feeding through orogastric tube. The BiPAP was also used intermittently during current hospitalization. OBJECTIVE: VITAL SIGNS: Reviewed was noted as normal temperature, respiratory rate 22, heart rate 65, blood pressure 115/46 to 158/60. Pulse oxygen saturation on 40% oxygen 98% saturation with the BiPAP and oxygen supplementation nasal cannula. HEENT: Moderate obesity. Head was atraumatic. NECK: Supple, short and obese. CARDIOVASCULAR: S1, S2 audible. LUNGS: Without any wheeze or crackle at this time. ABDOMEN: Soft. EXTREMITIES: The patient noted mild edema. SKIN: Visible skin with no lesions or rashes. MUSCULOSKELETAL: No deformities. CENTRAL NERVOUS SYSTEM: History of parkinsonism with overall generalized weakness. LABORATORY DATA: CBC this morning: WBC count 14,000, hemoglobin 9.5, hematocrit 36.2, platelet count was normal, 82% segmented neutrophils. CMP on 05/28/2017 glucose 149, BUN and creatinine normal. Albumin 2.6. Chest x-ray that was completed this morning shows no acute pulmonary infiltration. IMPRESSION: 1. The patient with acute pneumonia with acute current severe hypoxic respiratory failure, status post liberation from mechanical ventilator, currently treated with the BiPAP support and the oxygen supplementation intermittently. 2. Severe neurologic dysphagia with acute aspiration pneumonia as well. Pneumonia noted in the left lower lobe would not visible. Chest x-ray to document. The patient has a dense consolidation with a CT scan of the chest on this admission. 3. Chronic obesity. 4. Severe general weakness and fatigue. 5. Acute exacerbation of bronchial asthma. PLAN OF TREATMENT: If the patient would not be transferred to long-term care facility. She continue required acute care. Continue to be provided in this hospital. The patient is not noted fit at this time for discharge to the [place], [place] PROGRESS NOTE NAME: CORTES PONCE UNIT #: [id number] ROOM: [facility] DOCTOR: GRECIA MACARIO MD,MARIO BIRTHDATE: [birth year] [facility] level of care. PEG tube insertion will be done during this hospitalization as well since the patient will not be transferred to the long-term acute care facility long-term management dysphagia and nutrition support. Continue bronchodilators, oxygen supplementation, antibiotic adjusted to the known cultures. Continue Solu-Medrol 40 mg dose from b.i.d. it has been changed to 40 mg daily. Physical therapy and occupational therapy were noted in progress. Speech therapy as well. Usual care. Additional treatment changes. The patient to be made based on progression of the illness. MARIO PAIGE MD CM:PNTRANS [phone] MARIO MACARIO MD 05/29/17 0155 interface
--- NOTE | ~2017-05-22 | PR ---
[place], [place] PROGRESS NOTE NAME: CORTES PONCE UNIT #: [id number] [facility] DOCTOR: KATHY CARRILLO DO BIRTHDATE: [birth year] DOS: 05/27/2017 SUBJECTIVE: The patient was seen and examined at bedside. The patient was successfully extubated yesterday afternoon, has been stable on BiPAP since that time. The patient was awake; however, remains nonverbal, breathing remains unlabored. OG tube is in place with tube feedings running. The patient continues to improve clinically and remains in no acute distress. OBJECTIVE: VITAL SIGNS: Pulse is 102, temperature 99.2, respiratory rate 24, blood pressure 162/63 and pulse ox is 98% on BiPAP machine with 40% oxygen. HEENT: BiPAP mask in place. OG tube in place. Eyes are clear. No injection. Nares are patent. CARDIOVASCULAR: S1 and S2 are audible. LUNGS: Decreased breath sounds bilaterally. No wheezing or rales were appreciated. ABDOMEN: Soft, nontender, obese. Bowel sounds are present. EXTREMITIES: With moderate to severe edema in upper and lower extremities bilaterally. SKIN: No lesions or rashes were noted. MUSCULOSKELETAL: No deformities. NEUROLOGIC: Unable to assess due the patient's chronic condition. No focal deficits were appreciated. LABORATORY DATA: White count 12.6, hemoglobin 11.7, hematocrit 35.8, platelets 311. Blood gases this morning, pH of 7.45, pCO2 was 42.7, pO2 was 80.4. Chemistries: BMP was normal except for mildly elevated glucose of 172. Sputum culture was normal, with mild white yeast along with bronchoscopy washing culture showed mild light yeast as well. Blood culture remains negative. Chest x-ray this morning showed normal AP chest and no acute disease, stable from previous chest x-rays IMPRESSION: 1. Severe acute aspiration pneumonia, clinically improving. The patient had a bronchoscopy performed on May 25 with culture showing light yeast. No bacteria is growing at this time. 2. Consolidation, infiltration of left lower lobe seen on previous CT scan. 3. PARKINSONISM. 4. Dysphagia. 5. Acute exacerbation of chronic obstructive pulmonary disease. 6. Obesity. 7. Protein calorie malnutrition. TREATMENT PLAN: At this time, continue the patient on BiPAP. The patient continues to improve clinically. The patient is medically stable for transfer to LTAC for continued care where it can be arranged with the family id they desire to have a PEG tube in place to prevent future episodes of aspiration. No change in antibiotics or respiratory therapy. [place], [place] PROGRESS NOTE NAME: CORTES PONCE UNIT #: [id number] ROOM: [facility] DOCTOR: KATHY CARRILLO DO BIRTHDATE: [birth year] KATHY CARRILLO DO MARIO PAIGE MD CM:DONTE [phone] KATHY CARRILLO DO 05/27/17 2045 interface
--- NOTE | ~2017-05-22 | CON ---
[place], [place] REPORT OF CONSULTATION NAME: CORTES PONCE UNIT #: [id number] ROOM: [facility] DOCTOR: MARIO RICHARDS MD BIRTHDATE: [birth year] DOS: 05/23/2017 CONSULTATION REQUESTED BY: Hospitalist Service. REASON FOR CONSULTATION: Current acute respiratory failure and other problems including exacerbation of COPD and recent acute aspiration. HISTORY OF PRESENT ILLNESS: A 76-year-old white female who was admitted to the hospital under the care of hospitalist service on 05/22/2017. The patient has been noted to have ongoing symptoms of shortness breath with some cough for the past 3 days. The patient was refusing to come to the hospital. The patient was brought to the hospital for further assessment. The daughter has given the history for this patient on admission as well. The patient was noted with acute exacerbation of COPD and has been treated with oxygen supplementation and bronchodilators. The patient has developed acute aspiration on eating her food early this morning resulting in worsening of the respiratory distress and progressive worsening of the respiratory failure and hypoxia. Currently, the patient is getting BiPAP treatment, which was ordered by the primary care attending. She has been noted to be awake. There is some chest congestion reported. She does have a cough, but there was no sputum expectoration. The patient does not report any symptoms of hemoptysis, chest pain at this time, or describe any wheezing at home. REVIEW OF SYSTEMS: Somewhat limited because of the current use of BiPAP for respiratory support. CONSTITUTIONAL: Noted fatigue and tiredness. No symptoms of fever or chills. EYES: Denies any burning, redness, or tenderness. EARS, NOSE, AND THROAT SYMPTOMS: No sore throat, hoarseness, otalgia, postnasal drainage, or epistaxis. CARDIOVASCULAR SYSTEM: Denies angina pain, edema or pain of the lower extremity. GASTROINTESTINAL SYMPTOMS: The patient has been noted with symptoms of oropharyngeal dysphagia recently with possible aspiration reported by the daughter in the history. The patient has aspirated some food as she took her lunch today. There is no history of abnormal weight loss. GENITOURINARY SYMPTOMS: No dysuria, suprapubic pain, hematuria, or flank pain. SKIN: Denies lesions or rashes. CENTRAL NERVOUS SYSTEM: History of parkinsonism was noted, treated with medications. There were no symptoms of seizure, diplopia, or syncopal episodes. MUSCULOSKELETAL SYMPTOMS: The patient has not reported any joint pain, redness, or tenderness. Remaining systems were reviewed and they were noted all negative. PAST MEDICAL HISTORY: 1. COPD. 2. Moderate aortic stenosis, which has been assessed with echocardiogram in 02/2017. 3. History of parkinsonism. 4. Essential hypertension. [place], [place] REPORT OF CONSULTATION NAME: CORTES PONCE UNIT #: [id number] ROOM: [facility] DOCTOR: JACLYN RICHARDS MDM BIRTHDATE: [birth year] 5. Hyperlipidemia. 6. History of urinary retention. 7. Gastroesophageal reflux. PAST SURGICAL HISTORY: Noted left ankle surgery in the past. SOCIAL HISTORY: The patient is currently , lives at home, and has 3 children. She has a noted history of tobacco use, a pack of cigarettes per day since teenager, which was discontinued approximately 5 years ago. There is no history of occupation-related pulmonary exposure. FAMILY HISTORY: Completely unknown. HOME MEDICATIONS: Listed at the time of admission as use of: 1. ProAir/Ventolin HFA inhaler p.r.n. use as a nebulizer treatment. 2. Lisinopril 2.5 mg daily. 3. Oxybutynin 5 mg daily. 4. Omeprazole 20 mg p.o. daily. 5. Simvastatin 20 mg daily. 6. Spiriva 1 capsule inhalation daily. DRUG ALLERGY HISTORY: Noted as no known drug allergies. PHYSICAL EXAMINATION: GENERAL: This is a 76-year-old female, who is currently noted to be awake and alert on the BiPAP. The height is noted to be 5 feet 7 inches, weight 251 pounds. VITAL SIGNS: Normal temperature recorded this morning, previously noted as 103 degrees Fahrenheit upon arrival in the Emergency Room, later noted with 102 temperature. The respiratory rate for the patient's tachypnea even on the BiPAP ranged between 32 and 36; heart rate with noted severe tachycardia with rates ranging from 136-84 later on. The pulse oxygen saturation was recorded, the patient is currently on BiPAP, as 95% saturation. The room air oxygen saturation is recorded as 81%. The rate of Venturi mask for the patient on 40% is 93% saturation. HEENT: Moderate obesity. Neck was short and obese. Head was atraumatic. Eyes nonicterus. Short chin was also noted. Decreased posterior pharyngeal space, high tongue base, and crowding of soft tissue structures. Oral mucosa moist. CARDIOVASCULAR SYSTEM: S1, S2 audible. LUNGS: Noted basilar crackles with scattered expiratory wheezing. ABDOMEN: Noted moderate obesity, bowel sounds present. EXTREMITIES: No edema, clubbing, or cyanosis visible. SKIN: No lesions or rashes. MUSCULOSKELETAL SYSTEM: No deformities. CENTRAL NERVOUS SYSTEM: Cranial nerves checked and 2-12 intact. There were no focal deficits. LABORATORY AND RADIOLOGY DATA: Arterial blood gas on admission on 05/22/2017; 100% nonrebreather; pH of 7.32, pCO2 of 47, and pO2 of 99.9. Lactic acid 1.1 yesterday. CBC on 05/22/2017; WBC count 12.6, hemoglobin and hematocrit normal, [place], [place] REPORT OF CONSULTATION NAME: CORTES PONCE UNIT #: [id number] ROOM: [facility] DOCTOR: [facility] [birth year] and platelet count of 271,000, normal. PT and PTT yesterday on admission were normal. CMP on admission yesterday, normal BUN and creatinine, sodium 133. Other labs were normal. Influenza A and B, nasal washing antigen negative. CBC this morning; WBC count 13.1, hemoglobin 11.3, hematocrit of 36.4, and platelet count of 220,000. Repeat PT and PTT again noted normal this morning. CMP this morning; glucose 124, BUN and creatinine were normal. Arterial blood gas; pH of 7.30, pCO2 of 48.4, and pO2 of 57 on 4.5 liter nasal cannula. Review of the radiology data that was done yesterday and today; the chest x-ray that was taken yesterday was noted with evidence of acute area of consolidation and infiltration in the left lower lobe with patchy infiltration. Remaining lungs were noted clear. There were no visible pleural effusions. IMPRESSION: 1. The patient has been noted with acute aspiration pneumonia in the left lower lobe with further worsening of the respiratory status due to aspiration. 2. Oropharyngeal dysphagia related to parkinsonism and muscle incoordination was noted very likely. 3. The patient with chronic obstructive pulmonary disease as well, which is noted with past history of tobacco use and acute exacerbation concomitant related to the current infection. 4. Pneumonia. Consideration for streptococcal pneumonia as an outpatient as well. 5. The patient with ievq-ds-[id number] obesity as well. PLAN OF MANAGEMENT: The patient will require intubation and mechanical ventilation as most effective treatment of current acute aspiration pneumonia. Consider bronchoscopy as well, maybe tomorrow or day after. The patient has been getting broad spectrum intravenous antibiotics to be decreased based on the review of the blood culture. If the patient is decided to be intubated by the power of health care attorney, who is the daughter of this patient, endotracheal aspirate for the patient will be done. Monitor culture results of the blood. Other supportive therapy and plan of management to be changed according to the available culture results. Ventilator bundle management initiated with the patient intubated. She will be started on initial settings of mechanical ventilation; tidal volume of 500 mL, rate of 12, PEEP of 8.0, and 50% oxygen supplementation as initial setting with further changes to be done in the setting based on the arterial blood gases assessment. Thank you for allowing me to participate in the care of this patient. Total time for the pulmonary critical care evaluation and management was 40 minutes. [place], [place] REPORT OF CONSULTATION NAME: CORTES PONCE UNIT #: [id number] ROOM: [facility] DOCTOR: MARIO RICHARDS MD BIRTHDATE: [birth year] MARIO PAIGE MD CM:CONSTR:REPORT OF CONSULTATION 181 05/31/17 0902 interface
--- NOTE | ~2017-05-22 | PR ---
[place], [place] PROGRESS NOTE NAME: CORTES PONCE UNIT #: [id number] ROOM: 524 DOCTOR: MARIO RICHARDS MD BIRTHDATE: [birth year] DOS: 06/02/2017 SUBJECTIVE: The patient was independently seen and examined in bpcn-us-suin encounter. History was confirmed, the physical examination was performed, and all the labs reviewed. Assessment management of the patient for today's visit was personally completed. Note done by the medical massage therapist was approved. The patient has been noted with gradual reduction of respiratory symptom. BiPAP has been used intermittently during the day, continue at nighttime. The feeding was continued from the PEG tube. The patient has been noted comfortable without any distress, currently getting oxygen supplementation through nasal cannula. OBJECTIVE: VITAL SIGNS: Reviewed was essentially noted as mild tachycardia, heart rate of 101 beats per minute, otherwise normal vital signs. Pulse oxygen saturation noted as 95% saturation with the nasal cannula use, 2-3 liters and BiPAP at 35% oxygen. LUNGS: Noted clear. ABDOMEN: Soft, obese, nontender. EXTREMITIES: Mild edema. LABORATORY DATA: CBC: WBC count 19,000. BMP: BUN 40, creatinine was normal. IMPRESSION: 1. The patient with progressive resolution of the acute bronchial asthma exacerbation. The patient with resolving acute respiratory failure, acute aspiration. 2. History of Parkinsonism. 3. Debility secondary to acute illness. PLAN OF TREATMENT: No changes in plan of management. At this time, the intermediate facility consultation has been ordered for the patient is in progress. Upon authorization in the next couple of days, the patient may be transferred to intermediate facility for further care. [place], [place] PROGRESS NOTE NAME: ROD PONCEDA UNIT #: [id number] ROOM: 524 DOCTOR: MARIO RICHARDS MD BIRTHDATE: [birth year] MARIO PAIGE MD CM:PNTRANS [id number] MARIO MACARIO MD 06/03/17147 interface
--- NOTE | ~2017-05-22 | PR ---
[place], [place] PROGRESS NOTE NAME: CORTES PONCE UNIT #: [id number] ROOM: 524 DOCTOR: KATHY CARRILLO DO BIRTHDATE: [birth year] DOS: 06/01/2017 SUBJECTIVE: The patient is seen and examined at bedside. The patient was asleep on the ventilator in no acute distress. The patient was unable to answer any review of system questions secondary to current medical condition. OBJECTIVE: VITAL SIGNS: Temperature 98.9, pulse is 82, respirations 24, blood pressure 142/50, pulse ox is on the BiPAP. GENERAL: The patient was sleeping on the BiPAP, in no acute distress. HEENT: Eyes are clear. No injection. Nares are patent. Oral mucosa is moist. NECK: Supple, nontender. CARDIOVASCULAR: S1 and S2 audible. Regular rate and rhythm. LUNGS: No wheezes, rales or crackles, no rhonchi. ABDOMEN: Soft, nontender. PEG tube in place. EXTREMITIES: Mild edema of the upper extremities. LABORATORY DATA: White count 15.8, hemoglobin 12.9, hematocrit 40.7, platelets count 384. Chemistries, no change from yesterday stable. Glucose is 116. Serology is pending for acid fast staining and other atypical pneumonia workup. Bronchial washings positive for light yeast. Sputum culture showed light yeast. Blood cultures remain negative. Flu swab was negative. IMPRESSION: 1. Acute respiratory failure -- improving. 2. Acute pneumonia. 3. Severe . 4. Parkinsonism. 5. Aspiration with dysphagia. PLAN OF CARE: Continue with current pulmonary care including bronchodilators, oxygen supplementation, BiPAP, PEG tube was inserted on the . Case management working with family to find SNF for the patient for extended care at the time of discharge. The patient continues to improve clinically. We will continue to follow the patient. KATHY CARRILLO DO [place], [place] PROGRESS NOTE NAME: CORTES PONCE UNIT #: [id number] ROOM: 524 DOCTOR: KATHY CARRILLO DO BIRTHDATE: [birth year] MARIO PAIGE MD CM:PNKRISTIN [id number] KATHY CARRILLO DO 06/01/171611 interface
--- NOTE | ~2017-05-22 | PR ---
[place], [place] PROGRESS NOTE NAME: CORTES PONCE UNIT #: [id number] ROOM: [facility] DOCTOR: GRECIA MACARIO MD,MRAIO BIRTHDATE: [birth year] DOS: 05/26/2017 SUBJECTIVE: The patient was seen and examined on 05/26/2017. She has been noted on mechanical ventilation. Bronchoscopy was completed yesterday at the bedside in the Intensive Care Unit. She has continued on intravenous antibiotics. Feeding was continued on NG tube as tolerated. She has not been reported any hemodynamic instability. The patient had a CT scan of the chest that was completed yesterday with IV contrast for further assessment because of hemoptysis clotted blood noted in the right and the left lung endobronchial subsegments. She has not been noted any changes in the respiratory status with patient did not require any oxygen increased. OBJECTIVE: VITAL SIGNS: The temperature was essentially noted normal for the patient oral temperature, rectal temperature 99.5 degree Fahrenheit, respiratory rate 21-24, heart rate 77-59, blood pressure 157/51-157/59. The intake for the patient as 3700 mL, output 803 mL. Pulse oxygen saturation for the patient recorded as 98% saturation with 40% oxygen supplementation assist control, volume control mechanical ventilation. HEENT: The patient remains orally intubated. The NG tube is in place. Orogastric tube is in place. CARDIOVASCULAR: S1, S2 is audible. LUNGS: Noted with moderate decreased breath sounds. There were no wheezing or crackles heard. ABDOMEN: Soft with obesity. Bowel sounds present. EXTREMITIES: Noted with edema. VISIBLE SKIN: No lesions or rashes. MUSCULOSKELETAL: No deformities. CENTRAL NERVOUS SYSTEM: The patient is sedated. LABORATORY DATA: CMP of the patient on 05/26, glucose 189, BUN 27, creatinine was normal. Albumin of 2.4, prealbumin of 19. CBC on 05/26, hemoglobin of 10.9, hematocrit 34.6, WBC count normal, platelet count was normal. Arterial blood gas assist control, volume control 40% oxygen, pH of 7.43, pCO2 38.9, pO2 of 77.7 with tidal volume 700 mL. Urine culture noted light growth of yeast. CT scan of the chest that was completed yesterday was reviewed, does not show any evidence of abnormal mass lesions. Large area of consolidation, infiltration was noted in the left lower lobe for this patient as well. There were no pleural effusions. Chest x-ray of the patient that was done this morning was reviewed shows endotracheal tube remains in place. No other acute abnormality visible on the chest x-ray. IMPRESSION: 1. The patient has severe acute aspiration pneumonia, status post bronchoscopy yesterday. Cultures of the bronchial washing, which were done for this patient, preliminary showing light growth of yeast. 2. The patient with a consolidation, infiltration in the left lower lobe only visible with the CT scan of the chest. 3. History of Parkinsonism. 4. Severe oropharyngeal dysphagia related to parkinsonism with recurrent acute [place], [place] PROGRESS NOTE NAME: CORTES PONCE UNIT #: [id number] ROOM: [facility] DOCTOR: JACLYN RICHARDS MDM BIRTHDATE: [birth year] aspiration pneumonia. The organism suspected are gram-positive and gram-negative organisms. However, the cultures at this time has not been supporting any isolation of the organisms. 5. The patient with acute exacerbation of chronic obstructive pulmonary disease as well. 6. Moderate obesity. 7. Protein-calorie malnutrition. PLAN OF MANAGEMENT: Discontinue the intravenous fluid. The antibiotic spectrum for the patient will be escalation to the patient based on the current culture results. Discontinue the Zosyn and the IV vancomycin and only continue with the IV Levaquin as the primary antibiotic. Also, reduce the dose of the corticosteroids has been ordered. The patient to discontinue sedation completely and the Versed use. After that patient noted fully awake and alert, follows vocal commands. She will be started on a trial of CPAP 5, pressure support of 10 for this patient for the next 2 hours with assessment of the arterial blood gases after that. If tolerated with adequate arterial blood gas and mental status, patient would be considered for possible liberation from mechanical ventilation followed by use of the BiPAP for the respiratory support. The patient would not be given any oral feeding at the present time. The feeding will be given for this patient through the NG tube. The nutrition support will be maximized. Other supportive plan of therapy will be continued as previously. No further use of intravenous fluid at this time will be necessary. The patient has been given Ringer's lactate, which will be discontinued as the patient is already showing signs of fluid overload and peripheral edema. DVT prophylaxis will be continued with the Lovenox. Continue Peridex and/or IV Protonix. The current ongoing medical illness, prognosis and other has been discussed with the patient's daughter in detail personally in the Intensive Care Unit. Total time pulmonary critical care evaluation and management today was 45 minutes. MARIO PAIGE MD CM:PNTRANS [id number] MARIO MACARIO MD 05/26/17 1545 interface
--- NOTE | ~2017-05-22 | PR ---
[place], [place] PROGRESS NOTE NAME: CORTES PONCE UNIT #: [id number] ROOM: 524 DOCTOR: KATHY CARRILLO DO BIRTHDATE: [birth year] DOS: 06/03/2017 SUBJECTIVE: The patient seen and examined at bedside. The patient was sitting upright at 30-degree incline in bed, in no acute distress. The patient was alert and able to answer questions minimally with visual stimuli; however, the patient remains mostly nonverbal. The patient's clinical picture continues to improve. The patient seems to be tolerating PEG tube well and that her respiratory symptoms have improved as well. OBJECTIVE: VITAL SIGNS: Temperature 97.6, pulse is 94, respirations 20, blood pressure 136/50, pulse ox is 93% on 4 liters nasal cannula. LABS: Blood cultures remain negative. Sputum cultures are positive on the 7th for light yeast. Bronchial washings were positive as well for light yeast. PHYSICAL EXAMINATION: GENERAL APPEARANCE: No acute distress. HEENT: Eyes are clear. Nares are patent. Mucous membranes are moist. CARDIOVASCULAR: Regular rate and rhythm, no murmurs, gallops or rubs. S1 and S2 noted. PULMONARY: Lungs are clear to auscultation. No rales, wheezes or rhonchi. ABDOMEN: Soft, nontender with positive bowel signs, with PEG tube in place. EXTREMITIES: No edema or erythema in the upper or lower extremities. NEUROLOGIC: Difficult to assess due to the patient's medical condition; however, no focal deficits were appreciated. ASSESSMENT: 1. Resolution of acute bronchial asthma with exacerbation. 2. History of parkinsonism. 3. Debility with failure to thrive. 4. Dysphagia, with aspiration pneumonia. TREATMENT PLAN: The patient medically stable, is okay from a pulmonary standpoint for discharge to [facility] for ongoing rehabilitation when is made available. Solu-Medrol was discontinued today as the patient is asymptomatic and physical exam was negative for any respiratory distress or acute exacerbation of chronic disease. KATHY CARRILLO DO [place], [place] PROGRESS NOTE NAME: CORTES PONCE UNIT #: [id number] ROOM: 4 DOCTOR: KATHY CARRILLO DO BIRTHDATE: [birth year] MARIO PAIGE MD CM:DONTE [id number] [id number] KATHY CARRILLO DO 06/03/172301 interface
--- NOTE | ~2017-05-22 | PR ---
[place], [place] PROGRESS NOTE NAME: CORTES PONCE UNIT #: [id number] ROOM: [facility] DOCTOR: KATHY CARRILLO DO BIRTHDATE: [birth year] DOS: 05/28/2017 SUBJECTIVE: The patient was seen and examined at bedside. The patient was sitting upright on the BiPAP. The patient tolerated extubation well and continues to improve. The patient remains nonverbal; however, is able to respond to questions with visual stimulus. The patient is in no acute distress. Daughter was at bedside at the time of the exam. OBJECTIVE: VITAL SIGNS: Temperature 98.6, pulse is 71, respirations 22, blood pressure 127/53 and pulse ox 98% on BiPAP. GENERAL APPEARANCE: Awake and alert, in no acute distress. HEENT: Eyes are clear. No injection. Mucous membranes are moist. NECK: Supple, nontender. CARDIOVASCULAR: Regular rate and rhythm, no murmurs, gallops or rubs. PULMONARY: Diminished breath sounds in all lung lane, difficult to assess due to noise from the BiPAP machine. However, no wheezing, rales and rhonchi appreciated. ABDOMEN: Soft, nontender, positive bowel sounds. EXTREMITIES: Upper and lower extremities remained edematous. Mild improvement. LABORATORY DATA: White count 14, hemoglobin 11.5, hematocrit 36.2, platelets count 351. Chemistries were normal except for mildly elevated glucose of 149. Bronchial cultures are positive for light yeast. Sputum culture is positive for light yeast as well. Blood cultures remain negative. Chest x-ray this morning is normal AP chest. IMPRESSION: 1. Severe pneumonia, likely secondary to aspiration involving right lower lobe with hemoptysis, status post bronchoscopy 2 days ago. No masses were appreciated. 2. History of parkinsonism. 3. Severe dysphagia secondary to parkinsonism. 4. Severe debility. 5. Mild anemia. 6. Hyperglycemia. 7. Acute exacerbation of chronic obstructive pulmonary disease. PLAN OF CARE: The patient is tolerating extubation well. Continue with BiPAP. I recommend the patient be evaluated by GI team for a PEG tube placement due to chronic recurrent aspiration pneumonia. Family refused transfer to LTAC at [facility] for long-term care. Family is requesting the patient be discharged to skilled nursing when she is ready, which will require several more days of therapy in the ICU before she will be ready for transfer to a residential facility. No change in current antibiotics or respiratory therapy. KATHY CARRILLO DO [place], [place] PROGRESS NOTE NAME: CORTES PONCE UNIT #: [id number] ROOM: [facility] DOCTOR: KATHY CARRILLO DO BIRTHDATE: [birth year] MARIO PAIGE MD CM:PNTRANS [id number] KATHY CARRILLO DO 05/29/17 0423 interface
--- NOTE | ~2017-05-22 | PR ---
[place], [place] PROGRESS NOTE NAME: CORTES PONCE UNIT #: [id number] ROOM: 524 DOCTOR: GRECIA MACARIO MD,MARIO BIRTHDATE: [birth year] DOS: 06/01/2017 SUBJECTIVE: The patient was independently seen in vofq-nm-izrg encounter, history was confirmed. Physical examination performed. All the available labs were reviewed. The note done by the director medical economics was approved as well. Assessment and management of the patient for today's visit was personally completed. ____ necessary will be made for today's visit as well. The patient has been noted comfortable at this time on the BiPAP use this morning. The oxygen supplementation have been used intermittently as well. She has not been noted symptoms of chest pain or any abdominal pain. PEG tube remains in place. The feeding was continued from the PEG tube. Bronchodilator was also continued. The patient was noted without any acute distress at the present time. BiPAP has been used for the patient. The patient is saturating well on current supplementation of oxygen with the BiPAP. OBJECTIVE: VITAL SIGNS: The patient was essentially noted within normal limits. LUNGS: Noted without any wheezing or crackles. ABDOMEN: Soft and obese. EXTREMITIES: Minimal edema. IMPRESSION: The patient has been noted with history of parkinsonism with acute aspiration pneumonia, which has been gradually improving with the current plan of treatment. Oral debility was also improving, status post liberation of mechanical ventilation several days ago. PLAN OF TREATMENT: The patient will be continued on the BiPAP, bronchodilators, oxygen supplementation, nutrition support. Continue supportive plan of management, aspiration precaution. No change in treatment at this time will be needed today. MARIO PAIGE MD CM:PNTRANS [phone] MARIO MACARIO MD 06/01/171940 interface
--- NOTE | ~2017-05-22 | PROC NOTE ---
[place], [place] PROCEDURE NOTE NAME: CORTES PONCE UNIT #: [id number] ROOM: [facility] DOCTOR: GRECIA MACARIO MD,MARIO BIRTHDATE: [birth year] DOS: 05/25/2017 PREOPERATIVE DIAGNOSES: The patient with hemoptysis, acute respiratory failure and aspiration. POSTOPERATIVE DIAGNOSES: The patient evidence of clotted blood was noted in the right middle lobe subsegment as well as in the left upper lobe without any findings of active bleeding. Because of the presence of the hemoptysis certainly any endobronchial lesion underlying cannot be excluded. Significant inflammatory changes noted in the mucosa consistent with acute aspiration as well. PROCEDURE DESCRIPTION: Informed consent obtained for the patient's family members. The bronchoscopy done at the bedside in the negative pressure room in the Intensive Care Unit. Video Fiberoptic bronchoscope advanced to the endotracheal tube lower part of the trachea. The endotracheal tube noted about 6 cm above the angie level, which was adjusted by advancing it to appropriate level 4 cm above the angie level, the tip was noted after adjustment. Tracheal lumen noted with significant inflammatory changes, redness of the mucosa. Small amount of secretion was present, which was suctioned out. Angie was noted sharp. The right upper, right middle, right lower, left upper, lingular lower bronchi were noted. Clotted blood was noted for this patient moderate amount in the right middle lobe bronchial opening and the left upper lung bronchial opening. The blood clot for the patient was removed as much as possible. Inflammatory changes noted in the bronchial tree bilaterally. I cannot exclude any endobronchial lesions. Bronchial washing was sent for all the cultures and cytology. Procedure was well tolerated without any complications. Postoperative finding will be discussed with the patient's family members. CT scan of the chest will be obtained with contrast for the patient to assess any mass lesion or other abnormalities, which may explain the current hemoptysis. MARIO PAIGE MD CM:PROCNOTE:PROCEDURE NOTE [id number] MARIO MACARIO MD
--- NOTE | ~2017-05-22 | O ---
[place], [place] OPERATIVE NOTE NAME: CORTES PONCE UNIT #: [id number] ROOM: [facility]- DOCTOR: BRYANNA KENNEDY,CIRILO BIRTHDATE: [birth year] DOS: 05/30/2017 HISTORY: The patient is 76-year-old with respiratory insufficiency and with chronic NG tube feeding. I expected to have chronic course of need of enteral feeding and I have been asked for PEG tube placement with aspiration. PROCEDURE: Today's procedure part of investigation is panendoscopy, PEG tube placement. PREMEDICATION: Propofol. SCOPE: Olympus forward-viewing gastroscope Q10 video. REPORT: After putting the patient in supine position, scope was introduced; thereafter, under direct visualization, advanced through the length of esophagus without difficulty. Gastric pouch was entered. Gastritis seen. Duodenal bulb, second and third parts within normal limits. Antral abdominal wall, aseptically prepped, 2 mL of Xylocaine was injected in best transillumination sign, which is subxiphoid left leniency. This is corresponding with mid anterior gastric pouch. Trocar was introduced. Afterward to same spot, Guidewire was advanced through the center which was grasped with forceps orally extracted. Gastrostomy tube Indian 20 was anchored to it, orally pulled recovered from the surface of the abdomen. Anchors placed, patency checked tolerated procedure well. IMPRESSION: Percutaneous endoscopic gastrostomy for dysphagia, status post respiratory insufficiency history on BiPAP, history of gastritis. PLAN: Continuation with Protonix and resumption of feeding and utilization of the PEG tube from 10:00 p.m. tonight. Thank you very much indeed. CIRILO GOULD MD CM:OPRECORD:OPERATIVE NOTE [id number] CIRILO GOULD MD 05/30/17 1750 interface
--- NOTE | ~2017-05-22 | PR ---
[place], [place] PROGRESS NOTE NAME: CORTES PONCE UNIT #: [id number] ROOM: 524 DOCTOR: GRECIA MACARIO MD,MARIO BIRTHDATE: [birth year] DOS: 05/31/2017 SUBJECTIVE: She has been noted comfortable at this time, resting in the bed. She has been using the oxygen supplementation, nasal cannula was noted, otherwise comfortable as well. She has a PEG tube inserted, yesterday successfully without any difficulty. OBJECTIVE: VITAL SIGNS: Recorded shows temperature noted as 99.3 degree Fahrenheit, respiratory rate of 23 to 29, heart rate of 89, blood pressure 131/58. Pulse ox saturation on 3 liters nasal cannula 94% saturation, BiPAP 94% saturation. HEENT: Shows head was atraumatic. Eyes nonicterus. NECK: Supple. CARDIOVASCULAR: S1, S2 audible. LUNGS: Clear. ABDOMEN: Soft, obese, nontender. EXTREMITIES: Show minimal edema of upper extremity. LABORATORY DATA: CBC: WBC count 13.5, otherwise normal. BMP: BUN 29, creatinine was normal. IMPRESSION: Progressive and gradual resolution of the acute aspiration pneumonia. The patient was continued with improving over her debility and muscle deconditioning, resolving acute exacerbation of bronchial asthma/chronic obstructive pulmonary disease as well. PLAN AND MANAGEMENT: Reduce the Solu-Medrol dose to 20 mg daily for the patient. Continue nutrition support from the PEG tube. Bronchodilators. The will use the oxygen supplementation, continue antibiotics. Usual care of supportive therapy, plan of management and other care. Additional treatment changes need to be made for patient based on progression of the illness. MARIO PAIGE MD CM:PNTRANS [id number] MARIO MACARIO MD 06/10/17 1601 interface
--- NOTE | ~2017-05-22 | PR ---
[place], [place] PROGRESS NOTE NAME: CORTES PONCE UNIT #: [id number] ROOM: [facility] DOCTOR: GRECIA MACARIO MDMARIO BIRTHDATE: [birth year] DOS: 05/27/2017 PULMONARY FOLLOWUP ADDENDUM NOTE The patient was independently seen and examined today with [id number] encounter, history was confirmed. Physical examination is performed. All the labs available of the patient were reviewed with the patient personally. Assessment and management of the patient was personally completed for the patient today's visit. Note done by the medical claims representative was approved as well. SUBJECTIVE: The patient was successfully liberated from mechanical ventilation yesterday. The patient after a trial of CPAP for 2 hours, which was well tolerated. Arterial blood gases were done with adequate ventilation and oxygenation. The patient has been noted awake at this time with history of Parkinsonism. She does respond to the vocal commands been noted with generalized weakness. The OG tube for this patient remains in place for the feeding purposes. She has not been fed orally because of recurrent aspiration pneumonia and severe dysphagia for the patient related to underlying Parkinsonism. She did not require any vasopressors. OBJECTIVE: VITAL SIGNS: The temperature was noted essentially normal of the patient last 24 hours. The respiratory range for the patient was noted from 26-14, heart rate of 94-75, blood pressure 172/68-146/45. The pulse oxygen saturation for the patient recorded on 40% oxygen. The BiPAP 98% saturation, full face mask. LUNGS: The patient was noted with moderate decreased breath sounds bilaterally. There were no wheezing or crackles heard. ABDOMEN: Soft, nontender, bowel sounds present. EXTREMITIES: The patient was noted without any acute edema. CENTRAL NERVOUS SYSTEM: Severe Parkinsonism. VISIBLE SKIN: No lesions or rash. MUSCULOSKELETAL: No deformity. LABORATORY DATA: Culture of the bronchial washing of the patient 2 days ago, light growth of yeast with normal porter. CBC of the patient today to be 12.6, hemoglobin 11.7, hematocrit 35.8, platelet count was normal. CMP of the patient of 111, glucose 172, BUN and creatinine was normal. Albumin mildly decreased 2.7. Arterial blood gases CPAP yesterday. The patient's CPAP 5, pressure support of 10, pH of 7.42, pCO2 40.7, pO2 of 106. Chest x-ray this morning personally reviewed, 1 view does not show any acute pulmonary filtration or gastric tube in place. The endotracheal tube had been already removed. IMPRESSION: 1. The patient was being currently noted with acute severe pneumonia. The patient related to aspiration involving the right lower lobe with hemoptysis for the patient clotted blood in the area of most likely due to trauma, any acute infection, severe bronchitis was suspected. There were no endobronchial mass lesion noted. 2. History of Parkinsonism. 3. Severe dysphagia, neurological because of the Parkinsonism as well. [place], [place] PROGRESS NOTE NAME: CORTES PONCE UNIT #: [id number] ROOM: [facility] DOCTOR: GRECIA MACARIO MD,MARIO BIRTHDATE: [birth year] 4. Overall severe debility as well. 5. The patient with mild anemia as well. 6. Mild hyperglycemia. The patient related to corticosteroids. 7. Acute exacerbation of chronic obstructive pulmonary disease and bronchial asthma. PLAN OF MANAGEMENT: I will be reducing the dose of the corticosteroid for the patient from 60 mg b.i.d. to 40 mg b.i.d. at this time. Continue medical management of hyperglycemia. The antibiotic has been already deescalated based on the culture results from yesterday. No changes in the antibiotic further needs to be done. Physical therapy consultation. PEG tube placement would be considered. Assessment for the long-term acute care facility would be benefit the patient because severe acute illness, required prolonged hospitalization. Other usual medical management, plan for the patient to be continued as well. Additional treatment changes need to be done based on the progression of the illness. Thank you for allowing me to participate in the care of this patient. MARIO PAIGE MD CM:PNTRANS [phone] MARIO MACARIO MD 05/27/17 1741 interface
--- NOTE | ~2017-05-22 | PR ---
[place], [place] PROGRESS NOTE NAME: CORTES PONCE UNIT #: [id number] ROOM: 524 DOCTOR: KATHY CARRILLO DO BIRTHDATE: [birth year] DOS: 06/02/2017 SUBJECTIVE: The patient was seen and examined at bedside. The patient is arousable, continues on BiPAP. No new complaints at this time. The patient continues to remain stable without worsening of any of her comorbid conditions. OBJECTIVE: VITAL SIGNS: Temperature 98.2, pulse is 101, respirations 20, blood pressure 108/72 and pulse ox 93% on BiPAP. HEENT: Eyes are clear. No injection. Nares are patent. Mucous membranes are moist. NECK: Supple, nontender. BiPAP mask is in place. LUNGS: No wheezing or crackles. Clear to auscultation. ABDOMEN: Soft, nontender with PEG tube in place. CARDIOVASCULAR: S1 and S2 noted. EXTREMITIES: Minimal edema. LABORATORY DATA: Labs were reviewed. No significant change in labs from yesterday to today. Cultures, no change in cultures. Blood cultures remain negative. IMPRESSION: Resolving acute on chronic respiratory failure with history of parkinsonism and aspiration pneumonia. TREATMENT PLAN: The patient continues to be medically stable for discharge, awaiting placement at [facility] for further care. The patient to continue on her steroids, Levaquin, DuoNeb as ordered. No change in current plan. We will continue to follow the patient until is obtained. The patient can follow up outpatient with Dr. Paige as needed. KATHY CARRILLO DO [place], [place] PROGRESS NOTE NAME: CORTES PONCE UNIT #: [id number] ROOM: 524 DOCTOR: KATHY CARRILLO DO BIRTHDATE: [birth year] MARIO PAIGE MD CM:PNKRISTIN [id number] KATHY CARRILLO DO 06/02/17 1436 interface
[~2017-05-22 15:52] MED LIST changes: +CEFUROXIME AXE250 MG PO; +LASIX40 MG PO; +OMEPRAZOLE D/R20 MG PO; -OMEPRAZOLE40 MG PO; +PREDNISONE5 MG PO; +PROAIR HFA8.5 GM INH; -SIMVASTATIN10 MG PO; +SIMVASTATIN20 MG PO
[2017-05-22 16:10] VITALS: BP 160/71
[2017-05-22 16:17] LABS: ABG BASE EXCESS -0.8 mmol/L (-2.0-2.0); ABG HCO3 23.9 mmol/l (22-26); ABG O2 SATURATION 96.1 % (95-97); ARTERIAL BLOOD GAS PCO2 47.4 mmHg (35-45); ARTERIAL BLOOD GAS PH 7.337 (7.35-7.45); ARTERIAL BLOOD GAS PO2 99.9 mmHg (80-90)
[2017-05-22 16:23] LABS: BASO # 0.1 10*3/uL (0.0-0.1); BASO % 0.4 % (0.0-1.0); HEMATOCRIT 40.9 % (37.0-47.0); HEMOGLOBIN 12.9 g/dl (12.0-16.0); LYMPH # 0.8 10*3/uL (1.3-4.4); LYMPH % 6.1 % (27.0-41.0); MEAN CELL VOLUME 89.1 fl (81.0-99.0); MEAN CORPUSCULAR HGB 28.1 pg (27.0-31.0); MEAN CORPUSCULAR HGB CONC 31.5 g/dl (33.0-37.0); MEAN PLATELET VOLUME 9.1 fl (9.6-12.3); MONO # 0.9 10*3/uL (0.1-1.0); MONO % 7.5 % (3.0-9.0); NEUT # 10.6 10*3/uL (2.3-7.9); NEUT % 85.6 % (47.0-73.0); PLATELET COUNT AUTOMATED 271 10*3/uL (130-400); RED BLOOD COUNT 4.59 10*6/uL (4.10-5.10); RED CELL DISTRI WIDTH 14.6 % (0-14.5); WHITE BLOOD COUNT 12.3 10*3/uL (4.8-10.8)
[2017-05-22 16:32] LABS: ACT PARTIAL THROMBO TIME 25.1 SECONDS (20.8-31.5)
[2017-05-22 16:33] VITALS: BP 145/68
[2017-05-22 16:43] LABS: ALBUMIN 3.3 gm/dl (3.1-4.5); ALKALINE PHOSPHATASE 80 U/L (45-117); BUN 17 mg/dl (7-24); CHLORIDE 98 mmol/L (98-107); CREATININE 0.88 mg/dL (0.55-1.02); POTASSIUM 3.8 mmol/L (3.5-5.1); SGOT/AST 16 IU/L (3-35); SGPT/ALT 20 U/L (12-78); SODIUM 133 mmol/L (136-145); TOTAL PROTEIN 7.6 gm/dL (6.4-8.2)
[2017-05-22 16:48] LABS: TROPONIN I < 0.015 ng/ml (<0.045)
[2017-05-22 17:18] VITALS: BP 143/55
[2017-05-22] MEDS ORDERED: LISINOPRIL2.5 MG PO (17:23)
[2017-05-22] MEDS ORDERED: VENTOLIN 02.5 MG/3 M INH (17:24)
[2017-05-22] MEDS ORDERED: SPIRIVA -- 3018 MCG INH (17:25)
[2017-05-22 17:45] VITALS: BP 145/64
[2017-05-22] MEDS ORDERED: VITAMIN D31000 UNI1 PO (18:32)
[2017-05-22] MEDS ORDERED: LUTEIN6 M2 PO (18:33)
[2017-05-22] MEDS ORDERED: TYLENOL325 M1 PO (18:36)
[2017-05-22] MEDS ORDERED: [UNRECOGNIZED DRUG - OTHER] PO (18:37)
[2017-05-22 20:00] VITALS: BP 114/48
[2017-05-22 23:58] LABS: BILIRUBIN NEGATIVE (NEGATIVE); BLOOD TRACE-INTACT (NEGATIVE); CLARITY CLEAR (CLEAR); COLOR YELLOW (YELLOW); GLUCOSE NEGATIVE (NEGATIVE); KETONE NEGATIVE (NEGATIVE); LEUKO ESTERASE NEGATIVE (NEGATIVE); NITRITE NEGATIVE (NEGATIVE); PH 5.5 (5.0-9.0); SPECIFIC GRAVITY <= 1.005 (1.005-1.030); UROBILINOGEN 0.2 E.U./dl (0.2-1.0)
[2017-05-23] VITALS (7 sets, daily range): BP systolic 97–143; BP diastolic 30–67
[2017-05-23 07:22] LABS: BASO % 0.2 % (0.0-1.0); HEMATOCRIT 36.4 % (37.0-47.0); HEMOGLOBIN 11.3 g/dl (12.0-16.0); LYMPH # 0.9 10*3/uL (1.3-4.4); LYMPH % 7.2 % (27.0-41.0); MEAN CELL VOLUME 90.3 fl (81.0-99.0); MEAN PLATELET VOLUME 9.5 fl (9.6-12.3); MONO # 0.4 10*3/uL (0.1-1.0); NEUT # 11.6 10*3/uL (2.3-7.9); NEUT % 88.8 % (47.0-73.0); PLATELET COUNT AUTOMATED 220 10*3/uL (130-400); RED BLOOD COUNT 4.03 10*6/uL (4.10-5.10); RED CELL DISTRI WIDTH 14.6 % (0-14.5); WHITE BLOOD COUNT 13.1 10*3/uL (4.8-10.8)
[2017-05-23 07:32] LABS: ACT PARTIAL THROMBO TIME 27.1 SECONDS (20.8-31.5); INTERNATIONAL NORM RATIO 1.1 (2.0-3.5)
[2017-05-23 07:56] LABS: ALBUMIN 2.7 gm/dl (3.1-4.5); CHLORIDE 107 mmol/L (98-107); SODIUM 140 mmol/L (136-145)
[2017-05-23 08:07] LABS: ALKALINE PHOSPHATASE 60 U/L (45-117); BUN 10 mg/dl (7-24); CHOLESTEROL 108 mg/dL (<200); CREATININE 0.67 mg/dL (0.55-1.02); HDL CHOLESTEROL 56 mg/dl (40-60); LDL CHOLESTEROL 43 mg/dL (9-159); PHOSPHOROUS 2.4 mg/dL (2.5-4.9); SGOT/AST 11 IU/L (3-35); SGPT/ALT 15 U/L (12-78); THYROID STIM HORMONE (HS) 0.503 uIU/ml (0.358-4.75); TOTAL PROTEIN 6.4 gm/dL (6.4-8.2); TRIGLYCERIDES 45 mg/dl (<150); VLDL CHOLESTEROL 9 mg/dL (6-40)
[2017-05-23 09:01] LABS: VITAMIN D, 25-HYDROXY 26.8 ng/mL (30-100)
[2017-05-23 13:08] LABS: ABG HCO3 22.9 mmol/l (22-26); ABG O2 SATURATION 85.5 % (95-97); ARTERIAL BLOOD GAS PCO2 48.4 mmHg (35-45); ARTERIAL BLOOD GAS PH 7.3 (7.35-7.45); ARTERIAL BLOOD GAS PO2 57.4 mmHg (80-90)
[2017-05-23 17:06] LABS: ABG BASE EXCESS -2.9 mmol/L (-2.0-2.0); ABG HCO3 23.5 mmol/l (22-26); ABG O2 SATURATION 97.5 % (95-97); ARTERIAL BLOOD GAS PH 7.285 (7.35-7.45)
[2017-05-24] VITALS (12 sets, daily range): BP systolic 96–169; BP diastolic 47–77
[2017-05-24 05:43] LABS: ALBUMIN 2.3 gm/dl (3.1-4.5); ALKALINE PHOSPHATASE 52 U/L (45-117); BUN 16 mg/dl (7-24); CHLORIDE 110 mmol/L (98-107); CREATININE 0.59 mg/dL (0.55-1.02); POTASSIUM 3.6 mmol/L (3.5-5.1); SGOT/AST 17 IU/L (3-35); SGPT/ALT 20 U/L (12-78); SODIUM 144 mmol/L (136-145); TOTAL PROTEIN 5.6 gm/dL (6.4-8.2)
[2017-05-24 05:53] LABS: BASO % 0.1 % (0.0-1.0); HEMATOCRIT 32.3 % (37.0-47.0); LYMPH # 0.9 10*3/uL (1.3-4.4); LYMPH % 10.4 % (27.0-41.0); MEAN CELL VOLUME 90.2 fl (81.0-99.0); MEAN CORPUSCULAR HGB 27.9 pg (27.0-31.0); MEAN PLATELET VOLUME 9.5 fl (9.6-12.3); MONO # 0.6 10*3/uL (0.1-1.0); MONO % 6.8 % (3.0-9.0); NEUT % 82.1 % (47.0-73.0); PLATELET COUNT AUTOMATED 231 10*3/uL (130-400); RED BLOOD COUNT 3.58 10*6/uL (4.10-5.10); RED CELL DISTRI WIDTH 14.7 % (0-14.5); WHITE BLOOD COUNT 8.5 10*3/uL (4.8-10.8)
[2017-05-24 07:50] LABS: ABG BASE EXCESS -0.5 mmol/L (-2.0-2.0); ABG HCO3 24.4 mmol/l (22-26); ABG O2 SATURATION 96.9 % (95-97); ARTERIAL BLOOD GAS PCO2 43.9 mmHg (35-45); ARTERIAL BLOOD GAS PH 7.364 (7.35-7.45); ARTERIAL BLOOD GAS PO2 88.8 mmHg (80-90)
[2017-05-25] VITALS (12 sets, daily range): BP systolic 117–158; BP diastolic 42–61
[2017-05-25 07:40] LABS: ABG BASE EXCESS 1.6 mmol/L (-2.0-2.0); ABG HCO3 25.5 mmol/l (22-26); ABG O2 SATURATION 97.5 % (95-97); ARTERIAL BLOOD GAS PCO2 40.1 mmHg (35-45); ARTERIAL BLOOD GAS PH 7.422 (7.35-7.45); ARTERIAL BLOOD GAS PO2 98.3 mmHg (80-90)
[2017-05-25 11:42] LABS: HEMATOCRIT 32.7 % (37.0-47.0); HEMOGLOBIN 10.4 g/dl (12.0-16.0); MEAN CELL VOLUME 90.3 fl (81.0-99.0); MEAN CORPUSCULAR HGB 28.7 pg (27.0-31.0); MEAN CORPUSCULAR HGB CONC 31.8 g/dl (33.0-37.0); PLATELET COUNT AUTOMATED 259 10*3/uL (130-400); RED BLOOD COUNT 3.62 10*6/uL (4.10-5.10); RED CELL DISTRI WIDTH 14.8 % (0-14.5); WHITE BLOOD COUNT 8.9 10*3/uL (4.8-10.8)
[2017-05-25 11:56] LABS: ALBUMIN 2.4 gm/dl (3.1-4.5); ALKALINE PHOSPHATASE 48 U/L (45-117); BUN 22 mg/dl (7-24); CHLORIDE 112 mmol/L (98-107); POTASSIUM 3.7 mmol/L (3.5-5.1); SGOT/AST 15 IU/L (3-35); SGPT/ALT 25 U/L (12-78); SODIUM 145 mmol/L (136-145); TOTAL PROTEIN 5.8 gm/dL (6.4-8.2)
[2017-05-25 12:00] LABS: ATYPICAL LYMPHS 2 % (0-0); PLATELET SUFFICIENCY NORMAL (NORMAL); TOTAL CELLS COUNTED 100 #CELLS
[2017-05-26] VITALS (9 sets, daily range): BP systolic 96–179; BP diastolic 42–94
[2017-05-26 06:00] LABS: ALBUMIN 2.4 gm/dl (3.1-4.5); ALKALINE PHOSPHATASE 49 U/L (45-117); BUN 27 mg/dl (7-24); CHLORIDE 111 mmol/L (98-107); POTASSIUM 3.8 mmol/L (3.5-5.1); SGOT/AST 14 IU/L (3-35); SGPT/ALT 34 U/L (12-78); SODIUM 143 mmol/L (136-145); TOTAL PROTEIN 5.8 gm/dL (6.4-8.2)
[2017-05-26 06:12] LABS: HEMATOCRIT 34.6 % (37.0-47.0); HEMOGLOBIN 10.9 g/dl (12.0-16.0); MEAN CELL VOLUME 89.9 fl (81.0-99.0); MEAN CORPUSCULAR HGB 28.3 pg (27.0-31.0); MEAN CORPUSCULAR HGB CONC 31.5 g/dl (33.0-37.0); MEAN PLATELET VOLUME 9.4 fl (9.6-12.3); NUCLEATED RED BLOOD CELL 0.2 % (0.0-0.0); PLATELET COUNT AUTOMATED 278 10*3/uL (130-400); RED BLOOD COUNT 3.85 10*6/uL (4.10-5.10); RED CELL DISTRI WIDTH 14.8 % (0-14.5)
[2017-05-26 06:21] LABS: PREALBUMIN 19 mg/dl (20-40)
[2017-05-26 07:09] LABS: TOTAL CELLS COUNTED 100 #CELLS
[2017-05-26 07:11] LABS: PLATELET SUFFICIENCY NORMAL (NORMAL)
[2017-05-26 08:06] LABS: ABG BASE EXCESS 2.2 mmol/L (-2.0-2.0); ABG HCO3 25.9 mmol/l (22-26); ABG O2 SATURATION 96.3 % (95-97); ARTERIAL BLOOD GAS PCO2 38.9 mmHg (35-45); ARTERIAL BLOOD GAS PH 7.439 (7.35-7.45); ARTERIAL BLOOD GAS PO2 77.7 mmHg (80-90)
[2017-05-26 12:37] LABS: ABG BASE EXCESS 3.4 mmol/L (-2.0-2.0); ABG HCO3 27.3 mmol/l (22-26); ABG O2 SATURATION 98.1 % (95-97); ARTERIAL BLOOD GAS PCO2 40.7 mmHg (35-45); ARTERIAL BLOOD GAS PH 7.442 (7.35-7.45)
[2017-05-26 13:09] LABS: ACID FAST SMEAR Negative (.); ACID FAST SPEC PROCESSING Concentration (.)
[2017-05-27] VITALS (7 sets, daily range): BP systolic 146–172; BP diastolic 45–79
[2017-05-27 05:22] LABS: HEMATOCRIT 35.8 % (37.0-47.0); HEMOGLOBIN 11.7 g/dl (12.0-16.0); MEAN CELL VOLUME 88.4 fl (81.0-99.0); MEAN CORPUSCULAR HGB 28.9 pg (27.0-31.0); MEAN CORPUSCULAR HGB CONC 32.7 g/dl (33.0-37.0); MEAN PLATELET VOLUME 8.8 fl (9.6-12.3); NUCLEATED RED BLOOD CELL 0.1 10*3/uL (0.0-0.0); NUCLEATED RED BLOOD CELL 0.4 % (0.0-0.0); PLATELET COUNT AUTOMATED 311 10*3/uL (130-400); RED BLOOD COUNT 4.05 10*6/uL (4.10-5.10); RED CELL DISTRI WIDTH 14.6 % (0-14.5); WHITE BLOOD COUNT 12.6 10*3/uL (4.8-10.8)
[2017-05-27 05:38] LABS: ALBUMIN 2.7 gm/dl (3.1-4.5); ALKALINE PHOSPHATASE 50 U/L (45-117); BUN 20 mg/dl (7-24); CHLORIDE 104 mmol/L (98-107); CREATININE 0.63 mg/dL (0.55-1.02); SGOT/AST 15 IU/L (3-35); SGPT/ALT 35 U/L (12-78); SODIUM 139 mmol/L (136-145); TOTAL PROTEIN 6.4 gm/dL (6.4-8.2)
[2017-05-27 05:47] LABS: PLATELET SUFFICIENCY NORMAL (NORMAL); POLYCHROMASIA SLIGHT; TOTAL CELLS COUNTED 100 #CELLS
[2017-05-27 08:15] LABS: ABG BASE EXCESS 5.2 mmol/L (-2.0-2.0); ABG HCO3 29.2 mmol/l (22-26); ABG O2 SATURATION 95.8 % (95-97); ARTERIAL BLOOD GAS PCO2 42.7 mmHg (35-45); ARTERIAL BLOOD GAS PH 7.451 (7.35-7.45); ARTERIAL BLOOD GAS PO2 80.4 mmHg (80-90)
[2017-05-27] MEDS ORDERED: LEVAQUIN750 M1 IV (11:13)
[2017-05-27] MEDS ORDERED: ZOSYN 3.373.375 GM/5 IV (11:13)
[2017-05-27] MEDS ORDERED: ENOXAPARIN40 MG/0.2 SC (11:13)
[2017-05-27] MEDS ORDERED: LISINOPRIL5 MG PO (11:13)
[2017-05-27] MEDS ORDERED: DUONEB 3 MG/3 ML3 M1 NEB (11:13)
[2017-05-28] VITALS: BP 162/64
[2017-05-28 04:00] VITALS: BP 158/60
[2017-05-28 05:43] LABS: ALBUMIN 2.6 gm/dl (3.1-4.5); ALKALINE PHOSPHATASE 48 U/L (45-117); BUN 21 mg/dl (7-24); CHLORIDE 101 mmol/L (98-107); POTASSIUM 4.3 mmol/L (3.5-5.1); SGOT/AST 10 IU/L (3-35); SGPT/ALT 31 U/L (12-78); SODIUM 139 mmol/L (136-145); TOTAL PROTEIN 6.2 gm/dL (6.4-8.2)
[2017-05-28 06:09] LABS: HEMATOCRIT 36.2 % (37.0-47.0); HEMOGLOBIN 11.5 g/dl (12.0-16.0); MEAN CELL VOLUME 87.7 fl (81.0-99.0); MEAN CORPUSCULAR HGB 27.8 pg (27.0-31.0); MEAN CORPUSCULAR HGB CONC 31.8 g/dl (33.0-37.0); MEAN PLATELET VOLUME 9.2 fl (9.6-12.3); NUCLEATED RED BLOOD CELL 0.3 % (0.0-0.0); PLATELET COUNT AUTOMATED 351 10*3/uL (130-400); RED BLOOD COUNT 4.13 10*6/uL (4.10-5.10); RED CELL DISTRI WIDTH 14.8 % (0-14.5)
[2017-05-28 06:41] LABS: PLATELET SUFFICIENCY NORMAL (NORMAL); TOTAL CELLS COUNTED 100 #CELLS
[2017-05-28 08:00] VITALS: BP 127/53
[2017-05-28 12:00] VITALS: BP 147/71
[2017-05-28 16:00] VITALS: BP 115/46
[2017-05-28 20:00] VITALS: BP 133/55
[2017-05-29] VITALS: BP 150/55
[2017-05-29 04:00] VITALS: BP 139/68
[2017-05-29 08:00] VITALS: BP 155/59
[2017-05-29 08:27] LABS: BUN 26 mg/dl (7-24); CHLORIDE 103 mmol/L (98-107); CREATININE 0.65 mg/dL (0.55-1.02); POTASSIUM 4.1 mmol/L (3.5-5.1); SODIUM 141 mmol/L (136-145)
[2017-05-29 09:01] LABS: HEMATOCRIT 36.8 % (37.0-47.0); HEMOGLOBIN 11.7 g/dl (12.0-16.0); MEAN CELL VOLUME 88.7 fl (81.0-99.0); MEAN CORPUSCULAR HGB 28.2 pg (27.0-31.0); MEAN CORPUSCULAR HGB CONC 31.8 g/dl (33.0-37.0); NUCLEATED RED BLOOD CELL 0.2 % (0.0-0.0); PLATELET COUNT AUTOMATED 351 10*3/uL (130-400); RED BLOOD COUNT 4.15 10*6/uL (4.10-5.10); RED CELL DISTRI WIDTH 15.1 % (0-14.5); WHITE BLOOD COUNT 13.6 10*3/uL (4.8-10.8)
[2017-05-29 09:55] LABS: PLATELET SUFFICIENCY NORMAL (NORMAL); TOTAL CELLS COUNTED 100 #CELLS
[2017-05-29 12:00] VITALS: BP 126/62
[2017-05-29 16:00] VITALS: BP 145/52
[2017-05-29 20:00] VITALS: BP 138/60
[2017-05-30] VITALS: BP 149/60
[2017-05-30 04:00] VITALS: BP 129/66
[2017-05-30 05:09] LABS: HEMOGLOBIN 12.4 g/dl (12.0-16.0); MEAN CORPUSCULAR HGB 28.7 pg (27.0-31.0); MEAN CORPUSCULAR HGB CONC 32.6 g/dl (33.0-37.0); MEAN PLATELET VOLUME 8.4 fl (9.6-12.3); PLATELET COUNT AUTOMATED 344 10*3/uL (130-400); RED BLOOD COUNT 4.32 10*6/uL (4.10-5.10); RED CELL DISTRI WIDTH 15.1 % (0-14.5); WHITE BLOOD COUNT 10.2 10*3/uL (4.8-10.8)
[2017-05-30 05:23] LABS: BUN 23 mg/dl (7-24); CHLORIDE 100 mmol/L (98-107); CREATININE 0.57 mg/dL (0.55-1.02); POTASSIUM 4.1 mmol/L (3.5-5.1); SODIUM 138 mmol/L (136-145)
[2017-05-30 05:39] LABS: PLATELET SUFFICIENCY NORMAL (NORMAL); TOTAL CELLS COUNTED 100 #CELLS
[2017-05-30 08:00] VITALS: BP 127/58
[2017-05-30 12:00] VITALS: BP 117/47
[2017-05-30 15:57] VITALS: BP 135/77
[2017-05-30 20:00] VITALS: BP 154/58
[2017-05-31] VITALS: BP 136/50
[2017-05-31 04:00] VITALS: BP 122/40
[2017-05-31 05:59] LABS: BASO % 0.3 % (0.0-1.0); EOS # 0.1 10*3/uL (0.0-0.4); EOS % 0.7 % (1.0-4.0); HEMATOCRIT 40.6 % (37.0-47.0); HEMOGLOBIN 12.9 g/dl (12.0-16.0); LYMPH % 14.7 % (27.0-41.0); MEAN CELL VOLUME 87.5 fl (81.0-99.0); MEAN CORPUSCULAR HGB 27.8 pg (27.0-31.0); MEAN CORPUSCULAR HGB CONC 31.8 g/dl (33.0-37.0); MEAN PLATELET VOLUME 8.9 fl (9.6-12.3); MONO # 1.4 10*3/uL (0.1-1.0); MONO % 10.3 % (3.0-9.0); NEUT # 9.8 10*3/uL (2.3-7.9); PLATELET COUNT AUTOMATED 399 10*3/uL (130-400); RED BLOOD COUNT 4.64 10*6/uL (4.10-5.10); RED CELL DISTRI WIDTH 15.5 % (0-14.5); WHITE BLOOD COUNT 13.7 10*3/uL (4.8-10.8)
[2017-05-31 06:14] LABS: BUN 29 mg/dl (7-24); CHLORIDE 99 mmol/L (98-107); POTASSIUM 4.1 mmol/L (3.5-5.1); SODIUM 138 mmol/L (136-145)
[2017-05-31 06:15] LABS: CREATININE 0.58 mg/dL (0.55-1.02)
[2017-05-31 07:48] VITALS: BP 136/53
[2017-05-31 12:00] VITALS: BP 131/58
[2017-05-31 16:00] VITALS: BP 134/64
[2017-05-31 20:00] VITALS: BP 122/47
[2017-06-01] VITALS: BP 124/47
[2017-06-01 07:52] LABS: HEMATOCRIT 40.7 % (37.0-47.0); HEMOGLOBIN 12.9 g/dl (12.0-16.0); MEAN CELL VOLUME 87.3 fl (81.0-99.0); MEAN CORPUSCULAR HGB 27.7 pg (27.0-31.0); MEAN CORPUSCULAR HGB CONC 31.7 g/dl (33.0-37.0); PLATELET COUNT AUTOMATED 384 10*3/uL (130-400); RED BLOOD COUNT 4.66 10*6/uL (4.10-5.10); RED CELL DISTRI WIDTH 15.6 % (0-14.5); WHITE BLOOD COUNT 15.8 10*3/uL (4.8-10.8)
[2017-06-01 08:00] VITALS: BP 142/50
[2017-06-01 08:17] LABS: BUN 35 mg/dl (7-24); CHLORIDE 102 mmol/L (98-107); CREATININE 0.72 mg/dL (0.55-1.02); POTASSIUM 4.3 mmol/L (3.5-5.1); SODIUM 139 mmol/L (136-145)
[2017-06-01 08:32] LABS: ATYPICAL LYMPHS 2 % (0-0); PLATELET SUFFICIENCY NORMAL (NORMAL); TOTAL CELLS COUNTED 100 #CELLS
[2017-06-01 12:00] VITALS: BP 117/52
[2017-06-01 16:00] VITALS: BP 122/54
[2017-06-01 20:00] VITALS: BP 139/56
[2017-06-02] VITALS: BP 139/58
[2017-06-02 07:04] LABS: HEMATOCRIT 41.3 % (37.0-47.0); HEMOGLOBIN 13.4 g/dl (12.0-16.0); MEAN CELL VOLUME 88.4 fl (81.0-99.0); MEAN CORPUSCULAR HGB 28.7 pg (27.0-31.0); MEAN CORPUSCULAR HGB CONC 32.4 g/dl (33.0-37.0); MEAN PLATELET VOLUME 8.8 fl (9.6-12.3); PLATELET COUNT AUTOMATED 353 10*3/uL (130-400); RED BLOOD COUNT 4.67 10*6/uL (4.10-5.10); RED CELL DISTRI WIDTH 15.5 % (0-14.5); WHITE BLOOD COUNT 19.7 10*3/uL (4.8-10.8)
[2017-06-02 07:25] LABS: BUN 40 mg/dl (7-24); CHLORIDE 103 mmol/L (98-107); CREATININE 0.65 mg/dL (0.55-1.02); PHOSPHOROUS 3.3 mg/dL (2.5-4.9); POTASSIUM 4.4 mmol/L (3.5-5.1); SODIUM 138 mmol/L (136-145)
[2017-06-02 07:52] LABS: TOTAL CELLS COUNTED 100 #CELLS
[2017-06-02 07:53] LABS: PLATELET SUFFICIENCY NORMAL (NORMAL)
[2017-06-02 08:00] VITALS: BP 108/72
[2017-06-02 12:00] VITALS: BP 143/65
[2017-06-02 16:00] VITALS: BP 128/57
[2017-06-02 20:00] VITALS: BP 130/51
[2017-06-03] VITALS: BP 137/55
[2017-06-03 08:00] VITALS: BP 136/50
[2017-06-03] MEDS ORDERED: PREDNISONE10 MG PO (10:34)
[2017-06-03] MEDS ORDERED: LEVAQUIN750 M1 PO (10:34)
== END 2017-06-03 14:08 | disposition other institution (70) | DRG 871 ==
LOC: ED 15:52 → EDHOLD 17:01 → ICCU 17:01 → 5E 17:01 → ICCU 17:14 → 5E 05-31 13:32
PROVIDERS: Emergency Medicine; Family Medicine; Internal Medicine Critical Care Medicine; Student in an Organized Health Care Education/Training Program
PROC: 0BH18EZ Insertion of Endotracheal Airway into Trachea, Via Natural or Artificial Opening Endoscopic (ICD-10-PCS; principal; 2017-05-23)
PROC: 0B998ZZ Drainage of Lingula Bronchus, Via Natural or Artificial Opening Endoscopic (ICD-10-PCS; 2017-05-25)
PROC: 0BC58ZZ Extirpation of Matter from Right Middle Lobe Bronchus, Via Natural or Artificial Opening Endoscopic (ICD-10-PCS; 2017-05-25)
PROC: 0B988ZZ Drainage of Left Upper Lobe Bronchus, Via Natural or Artificial Opening Endoscopic (ICD-10-PCS; 2017-05-25)
PROC: 0B948ZZ Drainage of Right Upper Lobe Bronchus, Via Natural or Artificial Opening Endoscopic (ICD-10-PCS; 2017-05-25)
PROC: 0B958ZZ Drainage of Right Middle Lobe Bronchus, Via Natural or Artificial Opening Endoscopic (ICD-10-PCS; 2017-05-25)
PROC: 0BC88ZZ Extirpation of Matter from Left Upper Lobe Bronchus, Via Natural or Artificial Opening Endoscopic (ICD-10-PCS; 2017-05-25)
PROC: 0B928ZZ Drainage of Carina, Via Natural or Artificial Opening Endoscopic (ICD-10-PCS; 2017-05-25)
PROC: 0B968ZZ Drainage of Right Lower Lobe Bronchus, Via Natural or Artificial Opening Endoscopic (ICD-10-PCS; 2017-05-25)
PROC: 5A1935Z Respiratory Ventilation, Less than 24 Consecutive Hours (ICD-10-PCS; 2017-05-26)
PROC: 5A09357 Assistance with Respiratory Ventilation, Less than 24 Consecutive Hours, Continuous Positive Airway Pressure (ICD-10-PCS; 2017-05-26)
PROC: 5A09457 Assistance with Respiratory Ventilation, 24-96 Consecutive Hours, Continuous Positive Airway Pressure (ICD-10-PCS; 2017-05-27)
PROC: 0DH63UZ Insertion of Feeding Device into Stomach, Percutaneous Approach (ICD-10-PCS; 2017-05-30)
PROC: 5A09357 Assistance with Respiratory Ventilation, Less than 24 Consecutive Hours, Continuous Positive Airway Pressure (ICD-10-PCS; 2017-05-30)
PROC: 5A09357 Assistance with Respiratory Ventilation, Less than 24 Consecutive Hours, Continuous Positive Airway Pressure (ICD-10-PCS; 2017-05-31)
PROC: 5A09357 Assistance with Respiratory Ventilation, Less than 24 Consecutive Hours, Continuous Positive Airway Pressure (ICD-10-PCS; 2017-06-01)
PROC: 5A09357 Assistance with Respiratory Ventilation, Less than 24 Consecutive Hours, Continuous Positive Airway Pressure (ICD-10-PCS; 2017-06-02)
PROC: 5A09357 Assistance with Respiratory Ventilation, Less than 24 Consecutive Hours, Continuous Positive Airway Pressure (ICD-10-PCS; 2017-06-03)
DX: A41.9 Sepsis, unspecified organism (principal); J96.21 Acute and chronic respiratory failure with hypoxia; J69.0 Pneumonitis due to inhalation of food and vomit; J44.1 Chronic obstructive pulmonary disease with (acute) exacerbation; E46 Unspecified protein-calorie malnutrition; E87.5 Hyperkalemia; E87.1 Hypo-osmolality and hyponatremia; J45.901 Unspecified asthma with (acute) exacerbation; J96.22 Acute and chronic respiratory failure with hypercapnia; Z68.44 Body mass index [BMI] 60.0-69.9, adult; G20 Parkinson's disease; I11.0 Hypertensive heart disease with heart failure; I50.9 Heart failure, unspecified; R65.20 Severe sepsis without septic shock; K21.9 Gastro-esophageal reflux disease without esophagitis; E78.5 Hyperlipidemia, unspecified; R33.9 Retention of urine, unspecified; R73.9 Hyperglycemia, unspecified; D64.9 Anemia, unspecified; I35.0 Nonrheumatic aortic (valve) stenosis; R62.7 Adult failure to thrive; R13.12 Dysphagia, oropharyngeal phase; E66.8 Other obesity; R13.19 Other dysphagia; T38.0X5A Adverse effect of glucocorticoids and synthetic analogues, initial encounter; B37.9 Candidiasis, unspecified; Z79.899 Other long term (current) drug therapy; Z87.891 Personal history of nicotine dependence; Y92.89 Other specified places as the place of occurrence of the external cause

== ENCOUNTER → 2017-06-24 | Outpatient (CLI) | payer MEDICARE ==
[~2017-06-24] MED LIST changes: +DUONEB 3 MG/3 ML3 M1 NEB; +ENOXAPARIN40 MG/0.2 SC; +LEVAQUIN750 M1 IV; +LEVAQUIN750 M1 PO; +LISINOPRIL2.5 MG PO; +LISINOPRIL5 MG PO; +LUTEIN6 M2 PO; +PREDNISONE10 MG PO; +SPIRIVA -- 3018 MCG INH; +TYLENOL325 M1 PO; +VENTOLIN 02.5 MG/3 M INH; +VITAMIN D31000 UNI1 PO; +ZOSYN 3.373.375 GM/5 IV; +[UNRECOGNIZED DRUG - OTHER] PO
--- NOTE | ~2017-06-24 | SLPIE ---
[place], [place] MOLD MOVER INITIAL EVALUATION NAME: CORTES PONCE UNIT #: [id number] ROOM: DOCTOR: TRISTAN AGARWAL Speech Language Pathology Initial Evaluation Page 1 1 of Patient Name: CORTES PONCE Date: 06/24/2017 11:06 AM : 1940 SOC Date: 06/24/2017 [facility] Provider #: [id number] Treating Clinician: MORE Coates-MOLD MOVER Referring Physician: TRISTAN AGARWAL Patient Information Address: [address] [place] [address] Physician: TRISTAN AGARWAL Physician #: City, [facility] [address], Zip: [place], [place] [address] Occupation: Unknown # of Approved Visits: 0 Gender: Female Emergency Vehicle Dispatcher: KELLI PALENCIA Medicare #: [id number] Rehabilitation Information / History Onset Date Code Description Primary Diagnosis: 06/16/2017 A0000 NO DIAGNOSIS SENT TO THE [facility] INTERFACE Subjective Comments: Initial evaluation created to initiate the electronic medical record. Please see [employer] for details. Rehabilitation Information / History Clinical Findings Functional Goals Functional Limitation Reporting Swallowing G8996 - Swallowing functional limitation, current status at therapy episode outset and at reporting intervals Current Status: CJ - At least 20 percent but less than 40 percent impaired, limited or restricted G8997 - Swallowing functional limitation, projected goal status, at therapy episode outset, at reporting intervals, and at discharge or to end reporting Goal Status: CJ - At least 20 percent but less than 40 percent impaired, limited or restricted G8998 - Swallowing functional limitation, discharge status, at discharge from therapy or to end reporting Discharge Status: CJ - At least 20 percent but less than 40 percent impaired, limited or restricted 06/24/2017 11:07:40 AM MORE Coates-SHERIE Date/Time [place], [place] MOLD MOVER INITIAL EVALUATION NAME: CORTES PONCE UNIT #: [id number] ROOM: DOCTOR: TRISTAN AGARWAL [facility] [address] License #: [id number] CM:SLPIE 1111 1111 IS THERAPY [facility]
--- NOTE | ~2017-06-24 | PROC NOTE ---
[place], [place] PROCEDURE NOTE NAME: CORTES PONCE UNIT #: [id number] ROOM: DOCTOR: CAROLANN MARTIN BIRTHDATE: [birth year] DOS: 06/24/2017 MODIFIED BARIUM SWALLOW PHYSICIAN: Dr. Yancey RADIOLOGIST: Dr. Reyez. BACKGROUND INFORMATION: The patient is a 76-year-old female who was seen for modified barium swallow. This test was ordered to assess candidacy for resumption of p.o. intake. The patient is in a senior living and has been working with speech pathology, undergoing trial feedings with pureed consistency and honey-thick liquid to build her tolerance for oral feedings. She is currently fed by G-tube. Her most recent modified barium swallow had been conducted on 03/02/2017. She did exhibit a safe swallow at that time for pureed, solids and thin liquids. However, since that time has undergone a decline in status with need for intubation and tube feeding. Reports indicate that the patient and her family are anxious for her to resume oral feeding. For today's assessment, the patient was alert and able to follow commands; however, displayed generalized weakness. She presented in a consistent open mouth position with tongue protruding. Oral peripheral examination revealed edentulous status. Labial skills were moderately impaired in strength and range of motion. Tongue deviated to left at rest. Lingual strength, range of motion and coordination were within functional limits. The patient was able to volitionally swallow. Her volitional cough was weak. She did present with oxygen by nasal cannula. METHODS AND MATERIALS USED FOR THE EXAM: The patient was positioned in the lateral plane and examination was viewed under fluoroscopy. The patient was presented with a variety of consistencies to assess swallowing skills including applesauce mixed with barium presented in half teaspoon amounts, barium-coated banana given in bite size piece and nectar thick barium taken by cup in single sip size amounts. ORAL PHASE: The patient achieved adequate labial seal around cup and spoon with no anterior loss. Mastication of the soft solid was slow. Bolus formation was adequate. Oral transit was mildly impaired with puree and soft solid. Tongue to palate contact was adequate. Tongue retraction adequate. Bennett functioning adequate. PHARYNGEAL PHASE: The pharyngeal swallow was delayed with all consistencies given. Material entered the vallecula before the swallow triggered. Once her swallow triggered, there was no penetration or aspiration with any consistency and no residue in the pharynx. ESOPHAGEAL PHASE: This phase of the swallow was not formally assessed during this examination. IMPRESSIONS AND RECOMMENDATIONS: Based upon assessment results, this [place], [place] PROCEDURE NOTE NAME: CORTES PONCE UNIT #: [id number] ROOM: DOCTOR: CAROLANN MARTIN BIRTHDATE: [birth year] 76-year-old patient presents with a mild oropharyngeal dysphagia, characterized by mildly increased oral transit time and delayed swallow initiation with material entering the vallecula prior to the swallow. Once the swallow was initiated, there was no penetration, aspiration or residue. Recommend a pureed diet and nectar thick liquids. Recommend adherence to safe swallow strategies including feeding and assisting patient with meals, small bites and sips, feeding slowly and monitoring for signs and symptoms of aspiration. Also, recommend a calorie count to ensure adequate oral intake. Results and recommendations were provided in written form and sent back to senior living for education of staff. Recommend followup therapy at the senior living for oral and pharyngeal strengthening exercises and skilled monitoring at mealtime to ensure implementation of strategies and education of caregivers. Thank you very much for this referral. Should you have any questions regarding this patient, please contact the speech pathologist at [phone]. CAROLANN MARTIN CM:PROCNOTE:PROCEDURE NOTE [id number] CAROLANN MARTIN
--- NOTE | ~2017-06-24 | SLPPN ---
[place], [place] [employer] PROGRESS NOTE NAME: CORTES PONCE UNIT #: [id number] ROOM: DOCTOR: TRISTAN AGARWAL Speech Language Pathology Treatment Note Page 1 1 of Patient Name: CORTES PONCE Date: 06/24/2017 11:07 AM : 1940 SOC Date: 06/24/2017 [facility]: [facility] Provider #: [id number] Treating Clinician: MORE Coates-[employer] Referring Physician: TRISTAN AGARWAL Onset Date Description Code Primary Diagnosis: 06/16/2017 A0000 NO DIAGNOSIS SENT TO THE [facility] INTERFACE Time In: 10:00 AM Time Out: 11:00 AM [employer] Interventions and CPT Codes Consisted of: CPT Code Modifiers Minutes Units MOTION FLUOROSCOPY/SWALLOW 44958 60 1 Total Minutes: 60 Total Timed Minutes: 0 Total Untimed Minutes: 60 Total Units: 1 Total Timed Units: 0 Total Untimed Units: 1 06/24/2017 11:08:27 AM MORE Coates-SHERIE Date/Time State License #: [id number] CM:JAQUAN 1111 1111 IS THERAPY [facility]
--- NOTE | ~2017-06-24 | SLPPOC ---
[place], [place] TETRYL BLENDER OPERATOR PLAN OF CARE NAME: CORTES PONCE UNIT #: [id number] ROOM: DOCTOR: TRISTAN AGARWAL Speech Language Pathology Plan of Care Page 1 1 (Initial Evaluation) of Patient Name: CORTES PONCE Date: 06/24/2017 11:06 AM : 1940 SOC Date: 06/24/2017 [facility]: [facility] Provider #: [id number] Treating Clinician: MORE Coates-TETRYL BLENDER OPERATOR Referring Physician: TRISTAN AGARWAL Medicare #: 1 [id number] Visits From SOC: Onset Date Description Code Primary Diagnosis: 06/16/2017 A0000 NO DIAGNOSIS SENT TO THE [facility] INTERFACE Subjective Comments: Initial evaluation created to initiate the electronic medical record. Please see [facility] for details. Initial Level Goals Functional Limitation Reporting Swallowing G8996 - Swallowing functional limitation, current status at therapy episode outset and at reporting intervals Current Status: CJ - At least 20 percent but less than 40 percent impaired, limited or restricted G8997 - Swallowing functional limitation, projected goal status, at therapy episode outset, at reporting intervals, and at discharge or to end reporting Goal Status: CJ - At least 20 percent but less than 40 percent impaired, limited or restricted G8998 - Swallowing functional limitation, discharge status, at discharge from therapy or to end reporting Discharge Status: CJ - At least 20 percent but less than 40 percent impaired, limited or restricted 06/24/2017 11:07:40 AM TRISTAN AGARWAL Date/Time MORE Coates-SHERIE Date I certify the need for these services furnished under this plan of treatment while under my care. State License #: [id number] CM:SLPPOC 1111 1111 IS THER[facility]
== END | disposition home or self-care (01) ==
LOC: RAD/SH 01:59
DX: K21.9 Gastro-esophageal reflux disease without esophagitis (principal); R13.10 Dysphagia, unspecified; G20 Parkinson's disease; I10 Essential (primary) hypertension; J96.90 Respiratory failure, unspecified, unspecified whether with hypoxia or hypercapnia; J18.9 Pneumonia, unspecified organism

== ENCOUNTER 2017-07-02 12:25 | Emergency (ER) | payer MEDICARE ==
[~2017-07-02] VITALS: Wt 68.5 kg
[2017-07-02 14:31] LABS: BASO # 0.1 10*3/uL (0.0-0.1); BASO % 0.8 % (0.0-1.0); EOS # 0.1 10*3/uL (0.0-0.4); EOS % 1.2 % (1.0-4.0); HEMATOCRIT 31.6 % (37.0-47.0); HEMOGLOBIN 10.1 g/dl (12.0-16.0); LYMPH # 1.8 10*3/uL (1.3-4.4); LYMPH % 16.4 % (27.0-41.0); MEAN CORPUSCULAR HGB 28.8 pg (27.0-31.0); MEAN PLATELET VOLUME 9.2 fl (9.6-12.3); MONO # 0.9 10*3/uL (0.1-1.0); MONO % 8.4 % (3.0-9.0); NEUT # 7.8 10*3/uL (2.3-7.9); NEUT % 71.6 % (47.0-73.0); PLATELET COUNT AUTOMATED 440 10*3/uL (130-400); RED BLOOD COUNT 3.51 10*6/uL (4.10-5.10); RED CELL DISTRI WIDTH 15.6 % (0-14.5); WHITE BLOOD COUNT 10.8 10*3/uL (4.8-10.8)
[2017-07-02 14:39] LABS: ACT PARTIAL THROMBO TIME 22.7 SECONDS (20.8-31.5)
[2017-07-02 14:46] LABS: ALBUMIN 2.6 gm/dl (3.1-4.5); ALKALINE PHOSPHATASE 65 U/L (45-117); BUN 11 mg/dl (7-24); CHLORIDE 100 mmol/L (98-107); CREATININE 0.49 mg/dL (0.55-1.02); LIPASE 120 U/L (73-393); SGOT/AST 13 IU/L (3-35); SGPT/ALT 21 U/L (12-78); SODIUM 136 mmol/L (136-145); TOTAL PROTEIN 6.9 gm/dL (6.4-8.2)
[2017-07-02 14:50] LABS: TROPONIN I < 0.015 ng/ml (<0.045)
[2017-07-02] MEDS ORDERED: KEFLEX500 M1 PO (16:21)
== END 2017-07-02 16:25 | disposition home or self-care (01) ==
LOC: ED 12:25
PROVIDERS: Emergency Medicine
DX: L03.319 Cellulitis of trunk, unspecified (principal); L02.219 Cutaneous abscess of trunk, unspecified; J44.1 Chronic obstructive pulmonary disease with (acute) exacerbation; K21.9 Gastro-esophageal reflux disease without esophagitis; I10 Essential (primary) hypertension; E78.5 Hyperlipidemia, unspecified; R73.9 Hyperglycemia, unspecified; E87.1 Hypo-osmolality and hyponatremia; Z79.899 Other long term (current) drug therapy

== ENCOUNTER 2017-07-06 19:28 | Inpatient (IN) | payer MEDICARE ==
[~2017-07-06] VITALS: Ht 139.7 cm; Wt 68.2 kg
--- NOTE | ~2017-07-06 | PROC NOTE ---
[place], [place] PROCEDURE NOTE NAME: CORTES PONCE UNIT #: [id number] ROOM: 529 DOCTOR: CAROLANN MARTIN BIRTHDATE: [birth year] DOS: 07/08/2017 MODIFIED BARIUM SWALLOW. LOCATION: [facility], room [facility] 04/16 DOCTOR: Dr. Viktor Lora. RADIOLOGIST: Dr. Reyez. BACKGROUND INFORMATION: The patient, a 76-year-old female was seen for modified barium swallow. This test was ordered to rule out aspiration. This patient is known to this clinician from prior therapy services and prior modified barium swallow conducted 06/24/2017 upon last hospital admission. At that time, she was recommended a pureed diet and nectar thick liquids. The patient has had frequent recent hospitalizations. She has been n.p.o. and fed by PEG tube with need for ventilator placement in the past. Medical history also includes Parkinson's disease, COPD and dysphagia, most recent hospitalization now is due to sepsis and cellulitis. The patient had been receiving a pureed diet and nectar thick liquids at residential prior to admission. For today's assessment, the patient was alert with generalized weakness. Oral motor exam revealed edentulous status. Labial skills were moderately reduced in strength and range of motion. Lingual skills were mildly impaired in strength and range of motion. Buccal skills were mild to moderately reduced in strength and range of motion. The patient's volitional cough was weak. She was able to volitionally swallow. She was receiving oxygen via nasal cannula. METHODS AND MATERIALS USED FOR THE EXAM: The patient was positioned in the lateral plane and the examination was viewed under fluoroscopy. The patient was presented with applesauce mixed with barium presented in half teaspoon amounts and nectar thick barium presented both by spoon and cup in single sip size amounts. ORAL PHASE: Unremarkable. PHARYNGEAL PHASE: The pharyngeal swallow occurred within a timely manner. During the swallow, laryngeal elevation and epiglottic function were adequate. No penetration or aspiration occurred with any consistency and there was no pooling in the pharynx. ESOPHAGEAL PHASE: This phase of the swallow was not formally assessed during this exam. IMPRESSIONS AND RECOMMENDATIONS: Based upon assessment results, this 76-year-old patient presented with safe oral and pharyngeal swallowing skills for puree and nectar thick liquids. Soft foods or thin liquids were not attempted during today's study due to her status, history and aspiration risk. It is recommended that patient remain on pureed diet and nectar thick liquids at this time. Follow up therapy is recommended focusing on oral exercises, implementation of safe swallow strategies such as small bites and sips upright [place], [place] PROCEDURE NOTE NAME: CORTES PONCE UNIT #: [id number] ROOM: 529 DOCTOR: CAROLANN MARTIN BIRTHDATE: [birth year] positioning for meals and feeding slowly. Possible advancement of diet will be trialled pending the patient's status and progress. Results and recommendations were shared with the patient and her nurse and they verbalized understanding. Thank you very much for this referral. Should you have any questions regarding this patient, please contact the speech pathologist at [phone]. CAROLANN MARTIN CM:PROCNOTE:PROCEDURE NOTE 1136 1149 CAROLANN MARTIN
[~2017-07-06 19:28] MED LIST changes: +KEFLEX500 M1 PO; +LIPITOR10 MG PO; -SIMVASTATIN20 MG PO
[2017-07-06 19:35] VITALS: BP 127/47
[2017-07-06 20:05] VITALS: BP 112/47
[2017-07-06 20:05] LABS: BASO # 0.1 10*3/uL (0.0-0.1); BASO % 0.6 % (0.0-1.0); EOS # 0.1 10*3/uL (0.0-0.4); EOS % 0.7 % (1.0-4.0); HEMATOCRIT 27.9 % (37.0-47.0); LYMPH % 14.8 % (27.0-41.0); MEAN CELL VOLUME 90.6 fl (81.0-99.0); MEAN CORPUSCULAR HGB 29.2 pg (27.0-31.0); MEAN CORPUSCULAR HGB CONC 32.3 g/dl (33.0-37.0); MEAN PLATELET VOLUME 8.8 fl (9.6-12.3); MONO # 1.5 10*3/uL (0.1-1.0); MONO % 11.2 % (3.0-9.0); NEUT # 9.6 10*3/uL (2.3-7.9); NEUT % 71.4 % (47.0-73.0); PLATELET COUNT AUTOMATED 453 10*3/uL (130-400); RED BLOOD COUNT 3.08 10*6/uL (4.10-5.10); RED CELL DISTRI WIDTH 15.4 % (0-14.5); WHITE BLOOD COUNT 13.4 10*3/uL (4.8-10.8)
[2017-07-06 20:21] LABS: ALBUMIN 2.2 gm/dl (3.1-4.5); ALKALINE PHOSPHATASE 59 U/L (45-117); BUN 12 mg/dl (7-24); CHLORIDE 101 mmol/L (98-107); POTASSIUM 3.6 mmol/L (3.5-5.1); SGOT/AST 9 IU/L (3-35); SGPT/ALT 15 U/L (12-78); SODIUM 136 mmol/L (136-145); TOTAL PROTEIN 6.4 gm/dL (6.4-8.2)
[2017-07-06 20:23] LABS: TROPONIN I < 0.015 ng/ml (<0.045)
[2017-07-06 20:32] VITALS: BP 112/47; BP 118/46
[2017-07-06 21:30] VITALS: BP 136/67
[2017-07-07] VITALS (10 sets, daily range): BP systolic 92–116; BP diastolic 27–50
[2017-07-07 05:37] LABS: BUN 8 mg/dl (7-24); CHLORIDE 104 mmol/L (98-107); CREATININE 0.48 mg/dL (0.55-1.02); POTASSIUM 3.6 mmol/L (3.5-5.1); SODIUM 138 mmol/L (136-145)
[2017-07-07 05:58] LABS: BASO # 0.1 10*3/uL (0.0-0.1); BASO % 0.6 % (0.0-1.0); EOS # 0.2 10*3/uL (0.0-0.4); EOS % 1.9 % (1.0-4.0); HEMATOCRIT 25.9 % (37.0-47.0); LYMPH % 18.4 % (27.0-41.0); MEAN CELL VOLUME 91.2 fl (81.0-99.0); MEAN CORPUSCULAR HGB 28.2 pg (27.0-31.0); MEAN CORPUSCULAR HGB CONC 30.9 g/dl (33.0-37.0); MEAN PLATELET VOLUME 9.3 fl (9.6-12.3); MONO # 1.3 10*3/uL (0.1-1.0); MONO % 12.1 % (3.0-9.0); NEUT % 65.3 % (47.0-73.0); PLATELET COUNT AUTOMATED 385 10*3/uL (130-400); RED BLOOD COUNT 2.84 10*6/uL (4.10-5.10); RED CELL DISTRI WIDTH 15.6 % (0-14.5); WHITE BLOOD COUNT 10.7 10*3/uL (4.8-10.8)
[2017-07-08] VITALS: BP 130/53
[2017-07-08 04:00] VITALS: BP 145/46
[2017-07-08 05:22] LABS: BASO # 0.1 10*3/uL (0.0-0.1); BASO % 0.8 % (0.0-1.0); EOS # 0.2 10*3/uL (0.0-0.4); EOS % 1.7 % (1.0-4.0); HEMATOCRIT 25.2 % (37.0-47.0); HEMOGLOBIN 8.1 g/dl (12.0-16.0); LYMPH # 1.6 10*3/uL (1.3-4.4); LYMPH % 15.2 % (27.0-41.0); MEAN CORPUSCULAR HGB 28.9 pg (27.0-31.0); MEAN CORPUSCULAR HGB CONC 32.1 g/dl (33.0-37.0); MEAN PLATELET VOLUME 8.7 fl (9.6-12.3); MONO % 9.6 % (3.0-9.0); NEUT # 7.4 10*3/uL (2.3-7.9); NEUT % 71.6 % (47.0-73.0); PLATELET COUNT AUTOMATED 363 10*3/uL (130-400); RED CELL DISTRI WIDTH 14.9 % (0-14.5); WHITE BLOOD COUNT 10.3 10*3/uL (4.8-10.8)
[2017-07-08 05:40] LABS: ALBUMIN 1.9 gm/dl (3.1-4.5); ALKALINE PHOSPHATASE 49 U/L (45-117); BUN 5 mg/dl (7-24); CHLORIDE 105 mmol/L (98-107); CREATININE 0.51 mg/dL (0.55-1.02); POTASSIUM 3.4 mmol/L (3.5-5.1); SGOT/AST 12 IU/L (3-35); SGPT/ALT 17 U/L (12-78); SODIUM 140 mmol/L (136-145); TOTAL PROTEIN 5.5 gm/dL (6.4-8.2)
[2017-07-08 08:00] VITALS: BP 126/58
[2017-07-08 12:00] VITALS: BP 115/64
[2017-07-08 16:00] VITALS: BP 149/60
[2017-07-08 20:00] VITALS: BP 139/50
[2017-07-09] VITALS: BP 146/60
[2017-07-09 06:44] LABS: BASO # 0.1 10*3/uL (0.0-0.1); BASO % 1.2 % (0.0-1.0); EOS # 0.2 10*3/uL (0.0-0.4); EOS % 2.6 % (1.0-4.0); HEMATOCRIT 27.3 % (37.0-47.0); HEMOGLOBIN 8.5 g/dl (12.0-16.0); LYMPH # 1.4 10*3/uL (1.3-4.4); LYMPH % 18.7 % (27.0-41.0); MEAN CELL VOLUME 90.1 fl (81.0-99.0); MEAN CORPUSCULAR HGB 28.1 pg (27.0-31.0); MEAN CORPUSCULAR HGB CONC 31.1 g/dl (33.0-37.0); MONO # 0.9 10*3/uL (0.1-1.0); MONO % 11.6 % (3.0-9.0); NEUT # 4.9 10*3/uL (2.3-7.9); NEUT % 64.8 % (47.0-73.0); PLATELET COUNT AUTOMATED 427 10*3/uL (130-400); RED BLOOD COUNT 3.03 10*6/uL (4.10-5.10); WHITE BLOOD COUNT 7.6 10*3/uL (4.8-10.8)
[2017-07-09 07:18] LABS: BUN 5 mg/dl (7-24); CHLORIDE 103 mmol/L (98-107); CREATININE 0.43 mg/dL (0.55-1.02); POTASSIUM 3.4 mmol/L (3.5-5.1); SGOT/AST 12 IU/L (3-35); SGPT/ALT 16 U/L (12-78); SODIUM 139 mmol/L (136-145)
[2017-07-09 07:20] LABS: ALKALINE PHOSPHATASE 50 U/L (45-117); TOTAL PROTEIN 5.8 gm/dL (6.4-8.2)
[2017-07-09 08:00] VITALS: BP 115/41
[2017-07-09 12:00] VITALS: BP 129/64
[2017-07-09 16:00] VITALS: BP 142/52
[2017-07-09 20:00] VITALS: BP 123/50
[2017-07-10] VITALS: BP 139/50
[2017-07-10 06:04] LABS: BASO # 0.1 10*3/uL (0.0-0.1); BASO % 0.8 % (0.0-1.0); EOS # 0.2 10*3/uL (0.0-0.4); EOS % 3.1 % (1.0-4.0); HEMATOCRIT 27.2 % (37.0-47.0); HEMOGLOBIN 8.6 g/dl (12.0-16.0); LYMPH # 1.5 10*3/uL (1.3-4.4); LYMPH % 19.8 % (27.0-41.0); MEAN CORPUSCULAR HGB 28.8 pg (27.0-31.0); MEAN CORPUSCULAR HGB CONC 31.6 g/dl (33.0-37.0); MEAN PLATELET VOLUME 8.9 fl (9.6-12.3); MONO # 0.8 10*3/uL (0.1-1.0); MONO % 10.9 % (3.0-9.0); NEUT # 4.8 10*3/uL (2.3-7.9); NEUT % 64.1 % (47.0-73.0); PLATELET COUNT AUTOMATED 430 10*3/uL (130-400); RED BLOOD COUNT 2.99 10*6/uL (4.10-5.10); RED CELL DISTRI WIDTH 15.1 % (0-14.5); WHITE BLOOD COUNT 7.5 10*3/uL (4.8-10.8)
[2017-07-10 06:32] LABS: ALBUMIN 2.2 gm/dl (3.1-4.5); BUN 7 mg/dl (7-24); CHLORIDE 104 mmol/L (98-107); POTASSIUM 3.5 mmol/L (3.5-5.1); SODIUM 139 mmol/L (136-145)
[2017-07-10 06:38] LABS: ALKALINE PHOSPHATASE 48 U/L (45-117); CREATININE 0.45 mg/dL (0.55-1.02); SGOT/AST 9 IU/L (3-35); SGPT/ALT 15 U/L (12-78)
[2017-07-10 08:00] VITALS: BP 117/45
[2017-07-10 12:00] VITALS: BP 123/47
[2017-07-10 16:00] VITALS: BP 141/55
[2017-07-10 20:23] VITALS: BP 139/50
[2017-07-11 00:05] VITALS: BP 125/48
[2017-07-11 08:00] VITALS: BP 131/50; BP 142/70
[2017-07-11 12:00] VITALS: BP 127/50
[2017-07-11 16:00] VITALS: BP 133/66
[2017-07-11 20:00] VITALS: BP 137/44
[2017-07-12] VITALS: BP 135/51
[2017-07-12 06:06] LABS: BASO # 0.1 10*3/uL (0.0-0.1); BASO % 1.2 % (0.0-1.0); EOS # 0.3 10*3/uL (0.0-0.4); EOS % 3.7 % (1.0-4.0); HEMATOCRIT 30.2 % (37.0-47.0); HEMOGLOBIN 9.4 g/dl (12.0-16.0); LYMPH # 1.8 10*3/uL (1.3-4.4); LYMPH % 21.8 % (27.0-41.0); MEAN CELL VOLUME 92.4 fl (81.0-99.0); MEAN CORPUSCULAR HGB 28.7 pg (27.0-31.0); MEAN CORPUSCULAR HGB CONC 31.1 g/dl (33.0-37.0); MEAN PLATELET VOLUME 8.9 fl (9.6-12.3); MONO # 0.8 10*3/uL (0.1-1.0); MONO % 10.5 % (3.0-9.0); NEUT # 4.9 10*3/uL (2.3-7.9); NEUT % 60.9 % (47.0-73.0); PLATELET COUNT AUTOMATED 454 10*3/uL (130-400); RED BLOOD COUNT 3.27 10*6/uL (4.10-5.10); RED CELL DISTRI WIDTH 15.3 % (0-14.5)
[2017-07-12 06:37] LABS: ALBUMIN 2.2 gm/dl (3.1-4.5); BUN 10 mg/dl (7-24); CHLORIDE 102 mmol/L (98-107); POTASSIUM 3.8 mmol/L (3.5-5.1); SODIUM 139 mmol/L (136-145)
[2017-07-12 06:40] LABS: ALKALINE PHOSPHATASE 56 U/L (45-117); CREATININE 0.51 mg/dL (0.55-1.02); SGOT/AST 10 IU/L (3-35); SGPT/ALT 13 U/L (12-78); TOTAL PROTEIN 6.5 gm/dL (6.4-8.2)
[2017-07-12 08:00] VITALS: BP 120/46
[2017-07-12 12:00] VITALS: BP 149/51
[2017-07-12 16:00] VITALS: BP 122/39
[2017-07-12 20:00] VITALS: BP 134/54
[2017-07-13] VITALS: BP 114/49
[2017-07-13 07:09] LABS: BASO # 0.1 10*3/uL (0.0-0.1); BASO % 1.1 % (0.0-1.0); EOS # 0.3 10*3/uL (0.0-0.4); EOS % 3.7 % (1.0-4.0); HEMATOCRIT 32.6 % (37.0-47.0); HEMOGLOBIN 9.8 g/dl (12.0-16.0); LYMPH # 2.2 10*3/uL (1.3-4.4); MEAN CELL VOLUME 92.4 fl (81.0-99.0); MEAN CORPUSCULAR HGB 27.8 pg (27.0-31.0); MEAN CORPUSCULAR HGB CONC 30.1 g/dl (33.0-37.0); MONO % 11.2 % (3.0-9.0); NEUT # 5.4 10*3/uL (2.3-7.9); NEUT % 57.8 % (47.0-73.0); PLATELET COUNT AUTOMATED 459 10*3/uL (130-400); RED BLOOD COUNT 3.53 10*6/uL (4.10-5.10); RED CELL DISTRI WIDTH 15.7 % (0-14.5); WHITE BLOOD COUNT 9.3 10*3/uL (4.8-10.8)
[2017-07-13 07:33] LABS: CHLORIDE 101 mmol/L (98-107); SODIUM 138 mmol/L (136-145)
[2017-07-13 07:36] LABS: BUN 15 mg/dl (7-24); CREATININE 0.58 mg/dL (0.55-1.02)
[2017-07-13 08:00] VITALS: BP 125/55
[2017-07-13] MEDS ORDERED: CEFAZOLIN1 G1 IV (12:05)
== END 2017-07-13 16:30 | disposition other institution (70) | DRG 356 ==
LOC: ED 19:28 → 5E 20:25 → ICCU 20:25 → EDHOLD 20:25 → ICCU 20:53 → 5E 07-08 13:39
PROVIDERS: Internal Medicine; Student in an Organized Health Care Education/Training Program
PROC: 0DP0XUZ Removal of Feeding Device from Upper Intestinal Tract, External Approach (ICD-10-PCS; principal; 2017-07-06)
PROC: 0W9F0ZZ Drainage of Abdominal Wall, Open Approach (ICD-10-PCS; 2017-07-07)
PROC: BD11YZZ Fluoroscopy of Esophagus using Other Contrast (ICD-10-PCS; 2017-07-08)
PROC: 02HV33Z Insertion of Infusion Device into Superior Vena Cava, Percutaneous Approach (ICD-10-PCS; 2017-07-09)
DX: K94.22 Gastrostomy infection (principal); K68.19 Other retroperitoneal abscess; J96.00 Acute respiratory failure, unspecified whether with hypoxia or hypercapnia; E43 Unspecified severe protein-calorie malnutrition; A41.9 Sepsis, unspecified organism; L02.211 Cutaneous abscess of abdominal wall; L03.311 Cellulitis of abdominal wall; G20 Parkinson's disease; D64.9 Anemia, unspecified; Z99.81 Dependence on supplemental oxygen; K94.23 Gastrostomy malfunction; F02.80 Dementia in other diseases classified elsewhere, unspecified severity, without behavioral disturbance, psychotic disturbance, mood disturbance, and anxiety; J44.9 Chronic obstructive pulmonary disease, unspecified; I87.2 Venous insufficiency (chronic) (peripheral); E87.6 Hypokalemia; K21.9 Gastro-esophageal reflux disease without esophagitis; D47.3 Essential (hemorrhagic) thrombocythemia; B95.61 Methicillin susceptible Staphylococcus aureus infection as the cause of diseases classified elsewhere; I35.0 Nonrheumatic aortic (valve) stenosis; E78.5 Hyperlipidemia, unspecified; I10 Essential (primary) hypertension; Y83.3 Surgical operation with formation of external stoma as the cause of abnormal reaction of the patient, or of later complication, without mention of misadventure at the time of the procedure; Z87.891 Personal history of nicotine dependence; Z68.34 Body mass index [BMI] 34.0-34.9, adult; Y92.89 Other specified places as the place of occurrence of the external cause; Z79.899 Other long term (current) drug therapy

== ENCOUNTER → 2017-12-07 | Outpatient (CLI) | payer MEDICARE ==
[~2017-12-07] MED LIST changes: +CEFAZOLIN1 G1 IV
== END | disposition home or self-care (01) ==
LOC: CARD 13:42
DX: I35.0 Nonrheumatic aortic (valve) stenosis (principal)

== ENCOUNTER → 2021-01-28 | Outpatient (CLI) | payer MEDICARE | END | disposition home or self-care (01) | LOC: COVID19 14:48 | PROVIDERS: ATTEND Hospitalist | DX: Z11.52 Encounter for screening for COVID-19 (principal) ==

== ENCOUNTER 2021-06-21 11:59 | Emergency (ER) | payer MEDICARE ==
[~2021-06-21] VITALS: Wt 44.5 kg
== END 2021-06-21 13:55 ==
LOC: ED 11:59
DX: S00.93XA Contusion of unspecified part of head, initial encounter (principal); S00.83XA Contusion of other part of head, initial encounter; S50.12XA Contusion of left forearm, initial encounter; S50.11XA Contusion of right forearm, initial encounter; S80.12XA Contusion of left lower leg, initial encounter; S80.11XA Contusion of right lower leg, initial encounter; S80.02XA Contusion of left knee, initial encounter; S80.01XA Contusion of right knee, initial encounter; S90.32XA Contusion of left foot, initial encounter; S90.31XA Contusion of right foot, initial encounter; S30.202A Contusion of unspecified external genital organ, female, initial encounter; J44.9 Chronic obstructive pulmonary disease, unspecified; K21.9 Gastro-esophageal reflux disease without esophagitis; E78.5 Hyperlipidemia, unspecified; I10 Essential (primary) hypertension; Z79.899 Other long term (current) drug therapy; Z98.890 Other specified postprocedural states; Z87.891 Personal history of nicotine dependence; W18.39XA Other fall on same level, initial encounter; Y93.89 Activity, other specified; Y92.89 Other specified places as the place of occurrence of the external cause; Y99.8 Other external cause status